=== PATIENT | male | born 1955 | race Hispanic/Latino ===

== ENCOUNTER 2017-10-20 07:16 | Day surgery (SDC) | payer MEDICARE ==
[2017-10-14 11:03] VITALS: BMI 36.6
--- NOTE | 2017-10-18 04:34 | HP ---
REASON FOR ADMISSION: Left heart cath, possible angioplasty, abnormal stress test, history of coronary artery disease, aortic stenosis. BRIEF CLINICAL HISTORY: This is a 62-year-old male with a past medical history significant for coronary artery disease, status post PTCA in 01/2016; [id number] aortic stenosis, who had an abnormal stress test. The patient is scheduled for elective cardiac cath with possible angioplasty. Denies any chest pain, shortness of breath, or any palpitation. PAST HISTORY: Significant for aortic stenosis, diabetes, hypertension, hyperlipidemia. SOCIAL HISTORY: Denies any smoking. Denies any history of alcohol abuse. CURRENT MEDICATIONS: The patient was taking Plavix 75 mg daily, glimepiride 2 mg daily, atorvastatin 40 mg daily, aspirin 81 mg daily, Ultram 50 mg daily, amlodipine 10 mg daily, Zoloft 50 mg daily, metoprolol 25 mg daily, lisinopril 40 mg daily, ibuprofen 2 tablets daily, glipizide 10 mg daily, metformin 1 g twice a day. RECENT CARDIAC WORKUP: As follows; patient had a stress test dated 10/01/2017 that shows normal valve motion with ejection fraction of 63%, abnormal stress myocardial perfusion study, partially reversible apical inferior defect suspicious for ischemia, normal gated wall motion abnormality in comparison with last study dated 12/02/2016, the defect appears larger into the apical area and partially reversible to the current study, new defect in the apical and inferior defect, ejection fraction reported 63%. The patient is also echocardiography done that revealed ejection fraction of 60% to 65%, severe AR, possibly zzno-nn-hglrrlrt mitral regurgitation, trace to mild tricuspid regurgitation. REVIEW OF SYSTEMS: As per HPI. PHYSICAL EXAMINATION: GENERAL: Height of the patient 6 feet, weight of the patient 270 pounds, body mass index 36.6 kg/m2. Rest of the examination as follows. VITAL SIGNS: Temperature afebrile, heart rate 70, blood pressure 140/80. HEENT: PERRLA, intact. NECK: Supple. No carotid bruit or thyromegaly. CHEST: Clear to auscultation. HEART: S1 and S2, regular. ABDOMEN: Soft. EXTREMITIES: Clubbing and cyanosis negative. LABORATORY DATA: Blood workup pending. IMPRESSION: Tanaybyk-jo-tpaaaz aortic stenosis, abnormal stress test, history of coronary artery disease, history of stent in left anterior descending artery in 2016, diabetes, hypertension, hyperlipidemia, lqby-vn-tpkfljyg mitral regurgitation and trace tricuspid regurgitation. RECOMMENDATION: We will do left and right heart catheterization. Further recommendations after cardiac catheterization. We will load the Plavix. We will follow up with you. Thank you Dr. Massimo Cosme for providing us the opportunity in taking care of the patient, Lukasz Thomas. Terry Catherine MD
[2017-10-20 08:12] LABS: BASO # 0.03 K/mm3 (0.0-2.0); BASO % 0.4 % (0.0-3.0); EOS # 0.3 (0.0-0.7); EOS % 4.4 % (1.5-5.0); GRAN # 4.97 (1.4-6.5); GRAN % 69.8 % (50.0-68.0); HEMOGLOBIN 11.3 g/dL (14.0-18.0); LYMPH # 1.3 (1.2-3.4); LYMPH % 18.6 % (22.0-35.0); MEAN CELL VOLUME 92.2 fl (80.0-105.0); MEAN CORPUSCULAR HEMOGLOBIN 30.4 pg (25.0-35.0); MEAN CORPUSCULAR HGB CONC 32.9 g/dl (31.0-37.0); MEAN PLATELET VOLUME 9.3 fl (7.0-11.0); MONO # 0.5 (0.1-0.6); MONO % 6.8 % (1.0-6.0); RBC 3.72 10^6/uL (3.5-6.1); RED CELL DISTRIBUTION WIDTH 13.5 % (11.5-14.5); WHITE BLOOD COUNT 7.1 10^3/ul (4.5-11.0)
[2017-10-20 08:21] LABS: INR 0.94 (0.93-1.08); PARTIAL THROMBOPLASTIN TIME 26.5 Seconds (25.1-36.5); PROTHROMBIN TIME 10.8 SECONDS (9.4-12.5)
[2017-10-20 08:24] LABS: CALCIUM 9.5 mg/dL (8.4-10.5)
[2017-10-20] MEDS ORDERED: Insulin Regular 1 UNITS/0.01 ML ML IVP ONE (08:30)
[2017-10-20] MEDS ORDERED: Sodium Bicarbonate (8.4%) 50 Meq Syringe IVP ONE (08:33)
[2017-10-20] MEDS ORDERED: Dextrose 50% SYRINGE Inj (50 ml) ONE (08:34)
[2017-10-20] MEDS ORDERED: Lidocaine 2% Inj (20ml) ONE (08:56)
[2017-10-20] MEDS ORDERED: Iodixanol 320 MG/ML 200 ML BOTTLE IV ONE (08:57)
[2017-10-20] MEDS ORDERED: Nitroglycerin 50mg in D5W 50 MG/250 ML BOTTLE IV ONE (08:58)
[2017-10-20] MEDS ORDERED: Verapamil 2 ML ONE (08:58)
[2017-10-20] MEDS ORDERED: Midazolam 2 MG/2 ML VIAL ONE (09:03)
--- NOTE | 2017-10-20 10:59 | CARD ---
APPROVED REPORT EKG Measurement Heart [id number] <Conclusion> Normal sinus rhythm Right bundle branch block Abnormal ECG
[2017-10-20 11:01] VITALS: TEMP 97.4
--- NOTE | 2017-10-20 11:19 | CPOSTOP ---
DATE: 10/20/2017 CARDIAC MILLER DISTILLERY PROCEDURE/CARDIAC CATHETERIZATION PHYSICIAN: Terry Catherine MD. ASSISTANT PROFESSOR OF HISTORY: Mika Hollis. TYPE OF ANESTHESIA USED: Moderate conscious sedation. Total dose used 2 mg of Versed, fentanyl 100 mcg. PRE-PROCEDURE DIAGNOSES: Aortic stenosis, abnormal stress test, unstable angina. PROCEDURE PERFORMED: Left heart catheterization, right heart catheterization. FINDINGS: Patent stent in LAD. Moderate aortic stenosis. FINAL DIAGNOSIS: Patent stent in left anterior descending. Distal left anterior descending diffusely diseased. Moderate aortic stenosis. POST PROCEDURE CONDITION: Post procedure, the patient's condition is stable. VASCULAR ACCESS SITE: Right femoral artery, right femoral vein. CLOSURE DEVICE APPLIED: Mynx, right femoral artery and right venous access site. TOTAL RADIATION DOSE: 64947 milligray unit. TOTAL FLUORO TIME: 13.2 minutes. Terry Catherine MD
[2017-10-20 14:49] VITALS: RESP 20; O2SAT 98
[2017-10-20 14:50] VITALS: BP 150/97; PULSE 65
--- NOTE | 2017-10-20 14:54 | CARD ---
APPROVED REPORT Procedure(s) performed: Complete Heart Catheterization HISTORY The patient is a 62 year-old male with a history of : most recent EF: 63%. (EF Method: RADIONUCLIDE), renal failure without dialysis, previous CVA , peripheral vascular disease, diabetes mellitus with oral treatment , previous diagnostic cath, tobacco history() : The patient is a current smoker , previous PCI (The PCI date was 06/30/2015), hypertension , dyslipidemia , cerebrovascular disease , Hx of aortic stenosis moderate to severe by echo and abnormal stress test , reversible apical ischemia. INDICATION The indication(s) include : positive stress test, dyspnea, valvular heart disease. CASE TECHNIQUE The patient was brought electively to the Cardiac Catheterization Laboratory in a fasting state and was prepped and draped in a sterile manner. The right femoral groin was infiltrated with 2% Lidocaine subcutaneous anesthesia. A 6FR GLIDESHEATH ACCESS KIT sheath was inserted into the right femoral artery without difficulty. Coronary angiography was performed using coronary diagnostic catheters. The left coronary system was accessed and visualized with a Diagnostic , 6F JL4 CATH DXT 100 CM catheter. The right coronary system was accessed and visualized with a Diagnostic ,6F JR 4 CATH DXT 100 CM catheter. The left ventricle was accessed and visualized with a 6F PIGTAIL 145 CATH DXT 110 CM catheter. Left ventricular/Aortic Valve gradient assessed on pullback. Left ventriculogram was performed in CADET projection. An aortogram of the ascending aorta was performed. A 7 sheath was inserted into the right femoral vein without difficulty. Coronary angiography was performed using coronary diagnostic catheters. Cardiac outputs were obtained by the Thermal Dilution method. Closure device was deployed with a 6 Fr / 7 Fr MynxGrip without any complications. The patient tolerated the procedure well and there were no complications associated with the procedure. Mynx applied in both [id number] artery and femoral vein ( access sites). Vessel Analysis The patient's coronary anatomy is left dominant. The left main coronary artery is a large size vessel without significant stenosis. The left main trifurcates to the left anterior descending, circumflex, and ramus. The left anterior descending artery is a medium size vessel with diffuse calcification noted throughout this vessel and without significant stenosis. Patent stent in proximal LAD, but Distal LAD is diffusely diseased, but no focal flow limitin stanosis noted. The first diagonal branch is a small size vessel with intimal irregularities and without significant stenosis. The second diagonal branch is a medium size vessel with intimal irregularities and without significant stenosis. The circumflex artery is a large size vessel without significant stenosis. The first obtuse marginal branch is a large size vessel with diffuse calcification noted throughout this vessel and without significant stenosis. The left posterior descending artery is a small size vessel with diffuse calcification noted throughout this vessel and without significant stenosis. The ramus intermedius artery is a large size vessel with diffuse calcification noted throughout this vessel and without significant stenosis. There is a 55% stenosis in the proximal segment. The right coronary artery is a small size vessel with intimal irregularities and without significant stenosis. Left Ventricle The left ventricle is normal in size with normal contractility. There was no cardiomyopathy. The left ventricular ejection fraction is estimated to be 55-60%. The left ventricular end diastolic pressure is 18 mmHg. 14-16 mm gradient on pull back across aortic valve noted. Right Heart Cath Findings The Right Atrial Pressure is 11 mmHg. The Right Ventricular Pressure is 38/15 mmHg. The Pulmonary Artery Pressure is 37/117 mmHg. mean of 23 The Pulmonary Catheter Wedge Pressure is 12 mmHg. PVR 2.6 Wood units. The cardiac output and index were assessed using thermo dilution. The Cardiac Output is 4.33 L/min. The Cardiac index is 1.79 L/min/m2. Conclusion Patent stent in proximal LAD. Moderate disease in ramus 55%, non flow limiting. Moderate GARRY 1.1 cm2 Peak gradient across aortic -26 mmof Hg. RHC;RA-11, RV-37/12, PA-37/17 with a mean of 23, PCW-12, CO-4.33, CI-1.79, PVR-2.6 ho unit Recommendations Aggressive Medical TherapyCardiac Risk Reduction Program Weight Loss Reduction Program Monitor renal Fx closely, Base line creatininme 1.6. Iv hydration with HCO3, repeat Blood W/u in one week to monitor renal Fx. Complete abstinence of Ibuprofen PM / Advil/ Naprosen. Hold lisinopril and sustitute to hydrallazine 25 mg po BID. Avoid nephrotoxic meds, F/U Nephrology. Monitor by echo in 1-2 years. CC; Drs. Guillaume / Naeem.
[2017-10-20 16:35] LABS: BASO # 0.03 K/mm3 (0.0-2.0); BASO % 0.5 % (0.0-3.0); EOS # 0.3 (0.0-0.7); EOS % 5.1 % (1.5-5.0); GRAN # 4.15 (1.4-6.5); GRAN % 65.7 % (50.0-68.0); HEMOGLOBIN 11.2 g/dL (14.0-18.0); LYMPH # 1.3 (1.2-3.4); LYMPH % 20.8 % (22.0-35.0); MEAN CELL VOLUME 91.4 fl (80.0-105.0); MEAN CORPUSCULAR HEMOGLOBIN 30.2 pg (25.0-35.0); MEAN PLATELET VOLUME 9.4 fl (7.0-11.0); MONO # 0.5 (0.1-0.6); MONO % 7.9 % (1.0-6.0); RBC 3.71 10^6/uL (3.5-6.1); RED CELL DISTRIBUTION WIDTH 13.3 % (11.5-14.5); WHITE BLOOD COUNT 6.3 10^3/ul (4.5-11.0)
[2017-10-20 17:20] LABS: CALCIUM 9.4 mg/dL (8.4-10.5)
[2017-10-21] MEDS ORDERED: Metoprolol Succinate 25 mg XL Tab PO SCH (10:00)
[2017-10-21] MEDS ORDERED: Acetaminophen 650mg/20.3ml solution UD PO SCH (10:00)
== END 2017-10-20 18:30 | disposition home or self-care (01) ==
LOC: CATH 07:16
PROVIDERS: ATTEND Internal Medicine Cardiovascular Disease
DX: I25.110 Atherosclerotic heart disease of native coronary artery with unstable angina pectoris (principal); R94.39 Abnormal result of other cardiovascular function study; I35.0 Nonrheumatic aortic (valve) stenosis; E11.51 Type 2 diabetes mellitus with diabetic peripheral angiopathy without gangrene; Z86.73 Personal history of transient ischemic attack (TIA), and cerebral infarction without residual deficits; E78.5 Hyperlipidemia, unspecified; I12.9 Hypertensive chronic kidney disease with stage 1 through stage 4 chronic kidney disease, or unspecified chronic kidney disease; E11.22 Type 2 diabetes mellitus with diabetic chronic kidney disease; N18.9 Chronic kidney disease, unspecified; Z95.5 Presence of coronary angioplasty implant and graft; F17.200 Nicotine dependence, unspecified, uncomplicated
CPT/HCPCS: 36415; 80048; 80061; 85025; 85610; 85730; 86850; 86900; 93005; 93460; 99152; 99153; C1760; C1769 ×3; C1894; J1644 ×2; J1940; J2250; J3010; J7030; Q9966

== ENCOUNTER 2018-03-15 10:06 | Emergency (ER) | payer MEDICARE ==
[2018-03-15 10:10] VITALS: BMI 37.3
--- NOTE | 2018-03-15 10:40 | ED PDOC ---
Arrival/HPI - General Chief Complaint: Altered Mental Status Time Seen by Provider: 03/15/18 10:09 Historian: Patient - History of Present Illness Narrative History of Present Illness (Text): 03/15/18 10:29 62 year old male, whose past medical history includes diabetes, who presents to the emergency department complaining of hypoglycemia. Patient states at around 23:30 last night he took his insulin and fell asleep in a recliner. Patient states at 03:00 this morning he went to the bathroom and went back to sleep. Patient's states she couldn't wake the patient up and called EMS. Patient' s blood sugar was recorded at 51 upon arrival top ED. Patient denies any fevers , chills, chest pain, shortness of breath, abdominal pain, nausea, vomiting, diarrhea, back pain, neck pain, urinary symptoms, headache, dizziness, or any other complaint. Time/Duration: 4-6 hours Symptom Onset: Gradual Symptom Course: Improving Activities at Onset: Light Context: Home Past Medical History - Provider Review Nursing Documentation Reviewed: Yes - Infectious Disease Hx of Infectious Diseases: None - Cardiac Hx Hypertension: Yes Other/Comment: 1 cardiac stent - Pulmonary Hx Respiratory Disorders: Yes (SMOKES PIPE) - Neurological HX Cerebrovascular Accident: Yes (slight R leg weakness) Other/Comment: cerebral hemorrhage from a fall last month - HEENT Hx HEENT Disorder: No - Renal Hx Renal Disorder: No Hx Renal Failure: Yes - Endocrine/Metabolic Hx Diabetes Mellitus Type 2: Yes - Hematological/Oncological Hx Blood Transfusions: No - Integumentary Hx Dermatological Disorder: Yes (SCARRING TO BILATERAL SHOULDER,LEFT ARM,FR SX) - Musculoskeletal/Rheumatological Hx Musculoskeletal Disorders: Yes Other/Comment: edema lo lower extemeties. multiple fracture ribs from a fall last month - Gastrointestinal Hx Gastrointestinal Disorders: No - Genitourinary/Gynecological Hx Genitourinary Disorders: No - Psychiatric Hx Emotional Abuse: No Hx Physical Abuse: No Hx Substance Use: No - Surgical History Hx Musculoskeletal Surgery: Yes (Bilat shoulders, Bilat ankles, carpal tunnel) - Anesthesia Hx Anesthesia Reactions: No Hx Malignant Hyperthermia: No - Suicidal Assessment Feels Threatened In Home Enviroment: No Family/Social History - Physician Review Nursing Documentation Reviewed: Yes Family/Social History: Unknown Family HX Smoking Status: Heavy Smoker > 10 Cigarettes Daily Hx Alcohol Use: No Hx Substance Use: No Allergies/Home Meds Allergies/Adverse Reactions: Allergies onion Allergy (Uncoded 03/15/18 10:11) ANAPHYLAXIS Home Medications: Home Meds Medication Instructions Recorded Confirmed Glimepiride [amaRYL] 2 mg PO DAILY 11/13/14 03/15/18 GlipiZIDE [Glucotrol] 10 mg PO BID 11/13/14 03/15/18 Metoprolol Succinate XL [Toprol XL] 25 mg PO DAILY 12/02/16 03/15/18 Sertraline [Zoloft] 50 mg PO DAILY 12/02/16 03/15/18 amLODIPine [Norvasc] 10 mg PO DAILY 10/02/17 03/15/18 Clopidogrel [Plavix] 75 mg PO DAILY 10/14/17 03/15/18 MetFORMIN [glucOPHAGE] 1,000 mg PO BID 10/14/17 03/15/18 hydrALAZINE [hydralazine 25 mg PO BID 10/20/17 03/15/18 Hydrochloride] Ferrous Sulfate [Ferosul] 325 mg PO BID 03/15/18 03/15/18 Gabapentin [Neurontin] 300 mg PO TID 03/15/18 03/15/18 oxyCODONE [oxyCODONE Immediate 5 mg PO BID 03/15/18 03/15/18 Release Tab] oxyCODONE [oxyCONTIN] 10 mg PO DAILY 03/15/18 03/15/18 Review of Systems - Physician Review All systems were reviewed & negative as marked: Yes - Review of Systems Constitutional: Normal Eyes: Normal ENT: Normal Respiratory: Normal. absent: SOB, Cough Cardiovascular: Normal. absent: Chest Pain Gastrointestinal: Normal. absent: Abdominal Pain, Diarrhea, Nausea, Vomiting Genitourinary Male: Normal. absent: Dysuria, Frequency Musculoskeletal: Normal. absent: Back Pain, Neck Pain Skin: Normal. absent: Rash Neurological: Normal. absent: Headache, Dizziness Endocrine: Normal Hemo/Lymphatic: Normal Psychiatric: Normal Physical Exam Vital Signs Temp Pulse Resp BP Pulse Ox 03/15/18 10:06 97.9 F 69 20 158/86 H 100 - Systems Exam Head: Present: Atraumatic, Normocephalic Pupils: Present: PERRL Extroacular Muscles: Present: EOMI Conjunctiva: Present: Normal Mouth: Present: Moist Mucous Membranes Neck: Present: Normal Range of Motion Respiratory/Chest: Present: Clear to Auscultation, Good Air Exchange. No: Respiratory Distress, Accessory Muscle Use Cardiovascular: Present: Regular Rate and Rhythm, Normal S1, S2. No: Murmurs Abdomen: No: Tenderness, Distention, Peritoneal Signs Back: Present: Normal Inspection Upper Extremity: Present: Normal Inspection. No: Cyanosis, Edema Lower Extremity: Present: Normal Inspection. No: Edema Neurological: Present: GCS=15, CN II-XII Intact, Speech Normal Skin: Present: Warm, Dry, Normal Color. No: Rashes Psychiatric: Present: Alert, Oriented x 3, Normal Insight, Normal Concentration Medical Decision Making ED Course and Treatment: 03/15/18 10:41 Impression: 62 year old male presents to the emergency department complaining of hypoglycemia. Plan: -- Heart healthy meal -- Reassess and disposition Progress Notes: - Scribe Statement The provider has reviewed the documentation as recorded by the Scribe Jossy Hemphill All medical record entries made by the Scribe were at my direction and personally dictated by me. I have reviewed the chart and agree that the record accurately reflects my personal performance of the history, physical exam, medical decision making, and the department course for this patient. I have also personally directed, reviewed, and agree with the discharge instructions and disposition. Disposition/Present on Arrival - Present on Arrival Any Indicators Present on Arrival: No History of DVT/PE: No History of Uncontrolled Diabetes: No Urinary Catheter: No History of Decub. Ulcer: No History Surgical Site Infection Following: None - Disposition Have Diagnosis and Disposition been Completed?: Yes Diagnosis: Hypoglycemia Disposition: HOME/ ROUTINE Disposition Time: 12:01 Patient Plan: Discharge Condition: GOOD Discharge Instructions (ExitCare): Low Blood Sugar in People With Diabetes, Low Blood Sugar, Adult (DC) Additional Instructions: Lukasz- It was a pleasure to care for you today. Please check your sugars frequently today. Eat well and follow up with your regular doctors tomorrow. Return to us if any problems. Andre- Dr. Evan Hunt Forms: [employer]ool (Liberian)
[2018-03-15 12:13] VITALS: BP 152/78; PULSE 72; RESP 18; TEMP 98.2; O2SAT 98
--- NOTE | 2018-03-15 22:02 | CARD ---
APPROVED REPORT Date of service: 03/15/2018 EKG Measurement Heart [id number] <Conclusion> Normal sinus rhythm Right bundle branch block Abnormal ECG
== END 2018-03-15 12:14 | disposition home or self-care (01) ==
LOC: ED 10:06
DX: E11.649 Type 2 diabetes mellitus with hypoglycemia without coma (principal); Z79.4 Long term (current) use of insulin; I10 Essential (primary) hypertension; Z86.73 Personal history of transient ischemic attack (TIA), and cerebral infarction without residual deficits; Z95.5 Presence of coronary angioplasty implant and graft; F17.210 Nicotine dependence, cigarettes, uncomplicated

== ENCOUNTER 2018-08-07 13:32 | Outpatient (CLI) | payer MEDICARE | END 2018-08-07 13:33 | disposition home or self-care (01) | LOC: CARDIO 13:32 ==

== ENCOUNTER 2018-09-16 16:16 | Inpatient (IN) | payer MEDICARE, OTHER ==
--- NOTE | 2018-09-16 16:35 | ED PDOC ---
Arrival/HPI - General Chief Complaint: Hip Pain Time Seen by Provider: 09/16/18 16:23 Historian: Patient - History of Present Illness Narrative History of Present Illness (Text): 09/16/18 16:35 63 y/o male with PMH of CAD, DM, CVA presents to the Emergency department c/o left hip pain s/p fall this afternoon. Pt is unsure how he fell, states he just "went down", but denies LOC or headstrike. Pt was unable to ambulate after the fall and had to be helped up by bystanders. Has not taken any medication for pain. Pt denies having an orthopedic doctor. Denies fevers, chills, chest pain, SOB, neck pain, back pain, nausea, vomiting, abdominal pain, numbness, weakness, paresthesias, dizziness, vision changes, or any other associated symptoms. Past Medical History - Infectious Disease Hx of Infectious Diseases: None - Cardiac Hx Hypertension: Yes Other/Comment: 1 cardiac stent - Pulmonary Hx Respiratory Disorders: Yes (SMOKES PIPE) - Neurological HX Cerebrovascular Accident: Yes (slight R leg weakness) Other/Comment: cerebral hemorrhage from a fall last month - HEENT Hx HEENT Disorder: No - Renal Hx Renal Disorder: No Hx Renal Failure: Yes - Endocrine/Metabolic Hx Diabetes Mellitus Type 2: Yes - Hematological/Oncological Hx Blood Transfusions: No - Integumentary Hx Dermatological Disorder: Yes (SCARRING TO BILATERAL SHOULDER,LEFT ARM,FR SX) - Musculoskeletal/Rheumatological Hx Musculoskeletal Disorders: Yes Other/Comment: edema lo lower extemeties. multiple fracture ribs from a fall last month - Gastrointestinal Hx Gastrointestinal Disorders: No - Genitourinary/Gynecological Hx Genitourinary Disorders: No - Psychiatric Hx Emotional Abuse: No Hx Physical Abuse: No Hx Substance Use: No - Surgical History Hx Musculoskeletal Surgery: Yes (Bilat shoulders, Bilat ankles, carpal tunnel) - Anesthesia Hx Anesthesia Reactions: No Hx Malignant Hyperthermia: No - Suicidal Assessment Feels Threatened In Home Enviroment: No Family/Social History - Physician Review Nursing Documentation Reviewed: Yes Family/Social History: No Known Family HX Smoking Status: Heavy Smoker > 10 Cigarettes Daily Hx Alcohol Use: No Hx Substance Use: No Allergies/Home Meds Allergies/Adverse Reactions: Allergies onion Allergy (Uncoded 03/15/18 10:11) ANAPHYLAXIS Home Medications: Home Meds Medication Instructions Recorded Confirmed Metoprolol Succinate XL [Toprol XL] 25 mg PO DAILY 12/02/16 09/17/18 Sertraline [Zoloft] 100 mg PO DAILY 12/02/16 09/17/18 amLODIPine [Norvasc] 10 mg PO DAILY 10/02/17 09/17/18 Clopidogrel [Plavix] 75 mg PO DAILY 10/14/17 09/17/18 MetFORMIN [glucOPHAGE] 1,000 mg PO BID 10/14/17 09/17/18 hydrALAZINE [hydralazine 25 mg PO BID 10/20/17 09/17/18 Hydrochloride] Gabapentin [Neurontin] 300 mg PO TID 03/15/18 09/17/18 Acetaminophen/Diphenhydramine 1 tab PO HS 09/17/18 09/17/18 [Tylenol Pm Ex-Strength Caplet] Aspirin [Adult Aspirin] 81 mg PO DAILY 09/17/18 09/17/18 Dulaglutide [Trulicity] 0.5 ml SC QWK 09/17/18 09/17/18 traMADol [Ultram] 50 mg PO Q8 PRN 09/17/18 09/17/18 Review of Systems - Review of Systems Constitutional: Normal. absent: Fevers Eyes: Normal. absent: Vision Changes, Photophobia, Eye Pain ENT: Normal. absent: Sore Throat, Sinus Congestion Respiratory: Normal. absent: SOB, Cough Cardiovascular: Normal. absent: Chest Pain, Palpitations Gastrointestinal: Normal. absent: Abdominal Pain, Nausea, Vomiting Genitourinary Male: Normal Musculoskeletal: Arthralgias. absent: Back Pain, Neck Pain Skin: Normal. absent: Rash, Pruritis, Laceration Neurological: Normal. absent: Headache, Dizziness Endocrine: Normal Hemo/Lymphatic: Normal Psychiatric: Normal Physical Exam Vital Signs Reviewed: Yes Temperature: Afebrile Blood Pressure: Hypertensive Pulse: Regular Respiratory Rate: Normal Appearance: Positive for: Well-Appearing, Non-Toxic, Comfortable Pain Distress: None Mental Status: Positive for: Alert and Oriented X 3 - Systems Exam Head: Present: Atraumatic, Normocephalic. No: Tenderness, Ecchymosis, Abrasion, Laceration Pupils: Present: PERRL Extroacular Muscles: Present: EOMI Conjunctiva: Present: Normal Mouth: Present: Moist Mucous Membranes Neck: Present: Normal Range of Motion Respiratory/Chest: Present: Clear to Auscultation, Good Air Exchange. No: Respiratory Distress, Accessory Muscle Use Cardiovascular: Present: Regular Rate and Rhythm, Normal S1, S2, Peripheal Pulses Present Abdomen: No: Tenderness, Distention, Peritoneal Signs Back: Present: Normal Inspection Upper Extremity: Present: Normal Inspection, Normal ROM, NORMAL PULSES, Neurovascularly Intact, Capillary Refill < 2s. No: Cyanosis, Edema, Temperature Abnormalties Lower Extremity: Present: NORMAL PULSES, Tenderness (lateral left hip), Neurovascularly Intact, Capillary Refill < 2 s. No: Normal Inspection (left leg externally rotated and mildly shortened ), Edema, Normal ROM (decreased at left hip secondary to pain), Swelling, Temperature Abnormalties, Other (no bruising) Neurological: Present: GCS=15, CN II-XII Intact, Speech Normal Skin: Present: Warm, Dry, Normal Color. No: Rashes Psychiatric: Present: Alert, Oriented x 3, Normal Insight, Normal Concentration, Normal Affect, Normal Mood Medical Decision Making ED Course and Treatment: Initial Plan: * CBC, CMP * Coags * UA, culture * EKG * CT head * CT Cervical Spine * XR Left Hip * XR Left Femur * Portable Chest XR * Morphine Potassium 6.0 without EKG changes Bicarb, insulin, and IVF ordered XR of left hip reviewed with ED attending Dr. Crawley, who recommends CT scan. CT head and neck negative for acute pathology EKG shows no acute changes, troponin 0.01 CT hip shows comminuted subcapital femoral neck fracture. 2099 Spoke with patient's primary Dr. Cosme, who asks for Dr. Bhardwaj on orthopedic consult. Accepted pt to his service for inpatient admission to telemetry with diagnoses of syncope, femoral neck fracture, and hyperkalemia. Pt made aware of change in disposition. Resting comfortably in stretcher with stable vital signs at this time. [address] Bhardwaj who reviewed diagnostic imaging and recommends cardiology consult and preop labs for possible surgery tomorrow. Suggests pillow under left knee, no further intervention at this time. - Lab Interpretations Lab Results: 09/16/18 16:40 09/16/18 16:40 Lab Results 09/16/18 21:09: POC Glucose (mg/dL) 182 H 09/16/18 20:15: PT 10.9, INR 0.98, APTT 26.7 L 09/16/18 20:15: Urine Color Light yellow, Urine Appearance Clear, Urine pH 6.0, Ur Specific [place] >= 1.030, Urine Protein 30 H, Urine Glucose (UA) 100 H, Urine Ketones Negative, Urine Blood Negative, Urine Nitrate Negative, Urine Bilirubin Negative, Urine Urobilinogen 0.2, Ur Leukocyte Esterase Negative, Urine RBC 0 - 2, Urine WBC 0 - 2, Ur Epithelial Cells None 09/16/18 16:40: Sodium 140, Potassium 6.0 H*, Chloride 108 H, Carbon Dioxide 20 L, Anion Gap 18, BUN 35 H, Creatinine 1.7 H, Est GFR ( Amer) 49, Est GFR (Non-Af Amer) 41, Random Glucose 224 H, Calcium 10.0, Magnesium 1.4 L, Total Bilirubin 0.4, AST 26, ALT 19, Alkaline Phosphatase 101, Troponin I 0.01, Total Protein 8.6 H, Albumin 4.8, Globulin 3.8, Albumin/Globulin Ratio 1.3 09/16/18 16:40: WBC 13.5 H, RBC 4.14, Hgb 12.5 L, Hct 37.6 L, MCV 90.8, MCH 30. 2, MCHC 33.2, RDW 14.5, Plt Count 208, MPV 8.8, Neut % (Auto) 87.1 H, Lymph % (Auto) 6.3 L, [place] % (Auto) 5.8, Eos % (Auto) 0.6 L, Baso % (Auto) 0.2, Lymph # (Auto) 0.9 L, [place] # (Auto) 0.8 H, Eos # (Auto) 0.1, Baso # (Auto) 0.03, Absolute Neuts (auto) 11.77 H I have reviewed the lab results: Yes - RAD Interpretation Narrative RAD Interpretations (Text): 09/16/18 18:[address]: FINDINGS: VERTEBRAE: No acute compression fractures no retropulsed fragments. Vertebral bodies exhibit normal stature. There straightening of the normal cervical lordosis which may in part be due to patient positioning gantry however underlying element of muscle spasm may contribute DISCS/SPINAL CANAL/NEURAL FORAMINA: Mild multilevel degenerative spondylosis. At the C2-C3 level, there is adequate disc height. Minor central and bilateral disc bulge indents the ventral surface of the thecal sac and appears to minimally indent the ventral surface of the cord. The overall central canal measured at midline appears adequate despite disc. The uncovertebral joints exhibit minimal degenerative squaring. Facets a prominent. Exit foramina adequate. At the C3-C4 level, there is adequate disc height. Mild to moderate broad-based bulge of the posterior annulus flattens the ventral surface of the thecal sac and cord. Central canal is mild to moderately stenotic. The uncovertebral joints exhibit mild degenerative squaring. The facets are slightly overgrown. Exit f oramina appear adequate. At the C4-C5 level, there is more marked disc space narrowing with endplate eburnation. Small broad-based disc ridge complex contiguous hypertrophic uncovertebral joints. The changes result in moderate central canal stenosis and cord compression. Facet joints are hypertrophic right greater than left with bilateral foraminal stenosis. At the C5-C6 level, similar changes are seen. There is marked disc space narrowing with mild endplate eburnation. Small broad-based disc ridge complex contiguous with hypertrophic uncovertebral joints. Facets also hypertrophic right greater than left. Changes result in [id number] canal stenosis and cord compression. Exit foramina are stenotic bilaterally left greater than right. At the C6-C7 level, marked disc space narrowing with endplate eburnation. Irregular hypertrophic uncovertebral joints left larger than right result in compressive effects on the ventral surface of the thecal sac and cord more so on the left side. Central canal on the left side is [id number] stenotic. Bony exit foramina are also narrowed on the left side and adequate on the right. PARASPINAL SOFT TISSUES: Unremarkable. OTHER FINDINGS: None. IMPRESSION: No acute fractures. Multilevel degenerative spondylosis most significantly affecting the C3-C4 through the C6-C7 levels with varying degrees of mild to moderate canal stenosis and cord compression as well as variable bilateral foraminal stenosis. Head CT: FINDINGS: Streak artifact limits evaluation of the skull base. HEMORRHAGE: No intracranial hemorrhage. BRAIN: Diffuse atrophy with prominence of the ventricles and sulci noted. No mass effect or edema. Intracranial atherosclerosis. The glover-white matter differentiation appears intact. Please note that MRI with diffusion imaging is more sensitive in the detection of acute ischemic event. VENTRICLES: No hydrocephalus. CALVARIUM: Unremarkable. PARANASAL SINUSES: Unremarkable as visualized. No significant inflammatory changes. MASTOID AIR CELLS: Unremarkable as visualized. No inflammatory changes. OTHER FINDINGS: None. IMPRESSION: No acute intracranial pathology identified. Findings as above. CT left Hip, without IV contrast: BONES: A comminuted subcapital fracture of the left femoral neck is identified. There is coxa plana deformity at the fracture site. Additionally, there are noted to be partially healed comminuted fractures within the left superior and inferior pubic rami. No aggressive appearing osseous lesion. JOINTS: No dislocation. The joint spaces are normal. SOFT TISSUES: There is evidence of previous bilateral scrotal surgery thought probably compatible with vasectomy. Extensive atherosclerotic vascular plaquing is present. IMPRESSION: 1. Acute comminuted subcapital fracture of the left femoral neck. 2. Partially healed comminuted fractures of the left superior and inferior pubic rami. 3. Extensive atherosclerotic vascular plaquing. 4. Evidence of previous bilateral scrotal surgery; likely compatible with vasectomy. Electronically signed on Sep 16, 2018 9:01:09 PM EDT by: Дмитрий Ramirez M.D., MICKI Certified By [employer] Fellowship Trained MRI and CT Specialist Electroplating Laborer: Radiologist - EKG Interpretation EKG Interpretation (Text): Rate 93; NSR; RBBB; Normal Intervals; No STEMI, nonspecific ST/T wave changes Interpreted by ED Physician: Yes Type: 12 lead EKG Disposition/Present on Arrival - Present on Arrival Any Indicators Present on Arrival: No History of DVT/PE: No History of Uncontrolled Diabetes: No Urinary Catheter: No History of Decub. Ulcer: No History Surgical Site Infection Following: None - Disposition Have Diagnosis and Disposition been Completed?: Yes Diagnosis: Femoral neck fracture, Hyperkalemia, Syncope Disposition: HOSPITALIZED Disposition Time: 21:15 Patient Problems: Current Active Problems Problem Status Onset Hyperkalemia Acute Femoral neck fracture Acute Syncope Acute Condition: STABLE
[2018-09-16 16:54] LABS: BASO # 0.03 K/mm3 (0.0-2.0); BASO % 0.2 % (0.0-3.0); EOS # 0.1 (0.0-0.7); EOS % 0.6 % (1.5-5.0); HEMOGLOBIN 12.5 g/dL (14.0-18.0); LYMPH # 0.9 (1.2-3.4); LYMPH % 6.3 % (22.0-35.0); MEAN CELL VOLUME 90.8 fl (80.0-105.0); MEAN CORPUSCULAR HEMOGLOBIN 30.2 pg (25.0-35.0); MEAN CORPUSCULAR HGB CONC 33.2 g/dl (31.0-37.0); MEAN PLATELET VOLUME 8.8 fl (7.0-11.0); MONO # 0.8 (0.1-0.6); MONO % 5.8 % (1.0-6.0); RBC 4.14 10^6/uL (3.5-6.1); RED CELL DISTRIBUTION WIDTH 14.5 % (11.5-14.5); WHITE BLOOD COUNT 13.5 10^3/uL (4.5-11.0)
[2018-09-16] MEDS ORDERED: Morphine 2 mg/ml ISec IVP STA ×3 (16:58→21:11)
[2018-09-16 17:15] LABS: ALB/GLOB RATIO 1.3 (1.1-1.8); ALBUMIN 4.8 g/dL (3.0-4.8)
[2018-09-16 17:16] LABS: TROPONIN I 0.01 ng/mL
--- NOTE | 2018-09-16 17:39 | CT ---
Date of service: 09/16/2018 PROCEDURE: CT HEAD WITHOUT CONTRAST. HISTORY: syncope COMPARISON: Noncontrast head CT performed 12/14/15 TECHNIQUE: Axial computed tomography images were obtained through the head/brain without intravenous contrast. Radiation dose: Total exam DLP = 836.9 mGy-cm. This CT exam was performed using one or more of the following dose reduction techniques: Automated exposure control, adjustment of the mA and/or kV according to patient size, and/or use of iterative reconstruction technique. FINDINGS: Streak artifact limits evaluation of the skull base. HEMORRHAGE: No intracranial hemorrhage. BRAIN: Diffuse atrophy with prominence of the ventricles and sulci noted. No mass effect or edema. Intracranial atherosclerosis. The glover-white matter differentiation appears intact. Please note that MRI with diffusion imaging is more sensitive in the detection of acute ischemic event. VENTRICLES: No hydrocephalus. CALVARIUM: Unremarkable. PARANASAL SINUSES: Unremarkable as visualized. No significant inflammatory changes. MASTOID AIR CELLS: Unremarkable as visualized. No inflammatory changes. OTHER FINDINGS: None. IMPRESSION: No acute intracranial pathology identified. Findings as above.
--- NOTE | 2018-09-16 17:51 | CT ---
Date of service: 09/16/2018 PROCEDURE: CT Cervical Spine without contrast HISTORY: Status post fall with neck pain COMPARISON: None available. TECHNIQUE: Axial computed tomography images were obtained of the cervical spine without the use of intravenous contrast. Coronal and sagittal reformatted images were created and reviewed. Radiation dose: Total exam DLP = 652.58 mGy-cm. This CT exam was performed using one or more of the following dose reduction techniques: Automated exposure control, adjustment of the mA and/or kV according to patient size, and/or use of iterative reconstruction technique. FINDINGS: VERTEBRAE: No acute compression fractures no retropulsed fragments. Vertebral bodies exhibit normal stature. There straightening of the normal cervical lordosis which may in part be due to patient positioning gantry however underlying element of muscle spasm may contribute DISCS/SPINAL CANAL/NEURAL FORAMINA: Mild multilevel degenerative spondylosis. At the C2-C3 level, there is adequate disc height. Minor central and bilateral disc bulge indents the ventral surface of the thecal sac and appears to minimally indent the ventral surface of the cord. The overall central canal measured at midline appears adequate despite disc. The uncovertebral joints exhibit minimal degenerative squaring. Facets a prominent. Exit foramina adequate. At the C3-C4 level, there is adequate disc height. Mild to moderate broad-based bulge of the posterior annulus flattens the ventral surface of the thecal sac and cord. Central canal is mild to moderately stenotic. The uncovertebral joints exhibit mild degenerative squaring. The facets are slightly overgrown. Exit foramina appear adequate. At the C4-C5 level, there is more marked disc space narrowing with endplate eburnation. Small broad-based disc ridge complex contiguous hypertrophic uncovertebral joints. The changes result in moderate central canal stenosis and cord compression. Facet joints are hypertrophic right greater than left with bilateral foraminal stenosis. At the C5-C6 level, similar changes are seen. There is marked disc space narrowing with mild endplate eburnation. Small broad-based disc ridge complex contiguous with hypertrophic uncovertebral joints. Facets also hypertrophic right greater than left. Changes result in [id number] canal stenosis and cord compression. Exit foramina are stenotic bilaterally left greater than right. At the C6-C7 level, marked disc space narrowing with endplate eburnation. Irregular hypertrophic uncovertebral joints left larger than right result in compressive effects on the ventral surface of the thecal sac and cord more so on the left side. Central canal on the left side is [id number] stenotic. Bony exit foramina are also narrowed on the left side and adequate on the right. PARASPINAL SOFT TISSUES: Unremarkable. OTHER FINDINGS: None. IMPRESSION: No acute fractures. Multilevel degenerative spondylosis most significantly affecting the C3-C4 through the C6-C7 levels with varying degrees of mild to moderate canal stenosis and cord compression as well as variable bilateral foraminal stenosis.
[2018-09-16] MEDS ORDERED: Sodium Chloride 0.9% 500 ML IV STA ×2 (17:54→18:32)
[2018-09-16] MEDS ORDERED: Sodium Bicarbonate (8.4%) 50 Meq Syringe IVP ONE (18:04)
[2018-09-16] MEDS ORDERED: Dextrose 50% SYRINGE Inj (50 ml) IVP STA (18:06)
[2018-09-16] MEDS ORDERED: Insulin Regular 1 UNITS/0.01 ML ML SC STA (18:06)
[2018-09-16] MEDS ORDERED: Sodium Bicarbonate (8.4%) 50 Meq Syringe IVP STA (18:29)
[2018-09-16 20:36] LABS: URINE BILIRUBIN NEGATIVE (NEGATIVE); URINE BLOOD NEGATIVE (NEGATIVE); URINE GLUCOSE (UA) 100 mg/dL (NEGATIVE); URINE LEUKOCYTE ESTERASE NEGATIVE Leu/uL (NEGATIVE); URINE PROTEIN 30 mg/dL (<30 mg/dL); URINE UROBILINOGEN 0.2 E.U./dL (<1 E.U./dL)
[2018-09-16 20:37] LABS: URINE APPEARANCE CLEAR (CLEAR); URINE COLOR LIGHT YELLOW (YELLOW)
[2018-09-16 20:39] LABS: URINE RBC 0 - 2 /hpf (0-2); URINE WBC 0 - 2 /hpf (0-6)
[2018-09-16 20:44] LABS: INR 0.98; PARTIAL THROMBOPLASTIN TIME 26.7 Seconds (26.9-38.3); PROTHROMBIN TIME 10.9 SECONDS (9.4-12.5)
[2018-09-16] MEDS: Sodium Chloride 0.9% 1,000 ML IV SCH (21:36)
--- NOTE | 2018-09-16 21:54 | CARD ---
APPROVED REPORT Date of service: 09/16/2018 EKG Measurement Heart [id number] <Conclusion> Poor data quality, interpretation may be adversely affected Undetermined rhythm Right bundle branch block Possible Inferior infarct, age undetermined Abnormal ECG
[2018-09-16] MEDS: Insulin Reg-MEDIUM-Coverage SC SCH (22:00)
[2018-09-17] MEDS: HYDROmorphone 1 mg/ml ISec IVP PRN ×3 (01:44→19:06)
[2018-09-17 04:50] LABS: BASO # 0.02 K/mm3 (0.0-2.0); BASO % 0.2 % (0.0-3.0); EOS # 0.2 (0.0-0.7); EOS % 2.6 % (1.5-5.0); HEMOGLOBIN 11.7 g/dL (14.0-18.0); LYMPH # 1.4 (1.2-3.4); LYMPH % 17.4 % (22.0-35.0); MEAN CELL VOLUME 89.3 fl (80.0-105.0); MEAN CORPUSCULAR HEMOGLOBIN 29.8 pg (25.0-35.0); MEAN CORPUSCULAR HGB CONC 33.4 g/dl (31.0-37.0); MEAN PLATELET VOLUME 8.4 fl (7.0-11.0); MONO % 11.6 % (1.0-6.0); RBC 3.92 10^6/uL (3.5-6.1); RED CELL DISTRIBUTION WIDTH 14.7 % (11.5-14.5); WHITE BLOOD COUNT 8.2 10^3/uL (4.5-11.0)
[2018-09-17 05:08] LABS: INR 1.05; PROTHROMBIN TIME 11.9 SECONDS (9.4-12.5)
[2018-09-17 06:52] LABS: ALB/GLOB RATIO 1.1 (1.1-1.8); ALBUMIN 4.1 g/dL (3.0-4.8); ALT/SGPT 11 U/L (7-56); AST/SGOT 22 U/L (17-59); BLOOD UREA NITROGEN 27 mg/dL (7-21); CALCIUM 9.6 mg/dL (8.4-10.5); GFR NON-AFRICAN AMERICAN 51
[2018-09-17] MEDS: Insulin Reg-MEDIUM-Coverage SC SCH ×4 (08:35→22:46)
--- NOTE | 2018-09-17 08:40 | CT ---
Date of service: 09/16/2018 PROCEDURE: CT of the right hip. HISTORY: hip pain, abnormal XR COMPARISON: None available. TECHNIQUE: Contiguous axial images of the left hip were obtained. Coronal and sagittal reformats were generated. Radiation dose: Total exam DLP = 711.88 mGy-cm. This CT exam was performed using one or more of the following dose reduction techniques: Automated exposure control, adjustment of the mA and/or kV according to patient size, and/or use of iterative reconstruction technique. FINDINGS: BONES: Acute comminuted subcapital fracture of the left femoral neck. Partially healed comminuted fracture of the left superior and inferior pubic rami. Femoral head maintains normal contour. LEFT HIP JOINT: Unremarkable. No dislocation. No degenerative changes. SOFT TISSUES: Unremarkable. IMPRESSION: Acute comminuted subcapital fracture of the left femoral neck. Partially healed comminuted fracture of the left superior and inferior pubic rami.
[2018-09-17] MEDS: Sodium Chloride 0.9% 1,000 ML IV SCH (08:45)
--- NOTE | 2018-09-17 09:35 | RAD ---
Date of service: 09/16/2018 HISTORY: syncope COMPARISON: 12/14/2015 FINDINGS: LUNGS: No active pulmonary disease. PLEURA: No significant pleural effusion identified, no pneumothorax apparent. CARDIOVASCULAR: No aortic atherosclerotic calcification present. Normal cardiac size. No pulmonary vascular congestion. OSSEOUS STRUCTURES: No significant abnormalities. VISUALIZED UPPER ABDOMEN: Normal. OTHER FINDINGS: None. IMPRESSION: No active disease.
--- NOTE | 2018-09-17 10:26 | RAD ---
Date of service: 09/16/2018 PROCEDURE: Pelvis and left hip HISTORY: fall, left hip pain COMPARISON: TECHNIQUE: Three views FINDINGS: There is a displaced subcapital hip fracture on the left. Old fractures are seen of the pubic rami bilaterally. The right hip is unremarkable IMPRESSION: Subcapital hip fracture on the left
--- NOTE | 2018-09-17 10:27 | RAD ---
Date of service: 09/16/2018 PROCEDURE: Left Femur Radiographs. HISTORY: fall, left hip pain COMPARISON: None. TECHNIQUE: AP and Lateral Radiographs of the left femur. FINDINGS: FEMUR: Normal. No fracture. SOFT TISSUES: Normal. OTHER FINDINGS: Subcapital hip fracture on the left IMPRESSION: Unremarkable radiographs of the left femur.
[2018-09-17] MEDS: Metoprolol Succinate 25 mg XL Tab PO SCH (11:01)
[2018-09-17 12:38] VITALS: BMI 34.7
--- NOTE | 2018-09-17 14:03 | CON ---
DATE: 09/17/2018 ORTHOPEDIC CONSULT HISTORY OF PRESENT ILLNESS: The patient slipped and fell walking to a store on yesterday which is 09/16/2018, brought to the ER. X-rays of his painful left hip showed a displaced subcapital fracture left hip. He does have pain with attempted motion, cannot do straight leg raising. He is 63 years old, so he is a candidate for total hip, but because of his medical comorbidities, bipolar hip prosthesis will handle this also and do not be as stressful of a surgery, so hopefully I could do a left hip bipolar prosthesis when he is cleared medically by Dr. Cosme and Dr. Hartley and hopefully I can do it today on 09/17/2018 and if not, we can do it tomorrow in the afternoon. FINAL DIAGNOSIS: Displaced subcapital fracture left hip. PLAN: Plan is to stabilize the hip with left hip bipolar prosthesis and he will be able to do almost everything physically again. Jaime Bhardwaj DO BILL
--- NOTE | 2018-09-17 18:38 | HP ---
HISTORY OF PRESENT ILLNESS: The patient is a 63-year-old man with a past medical history of hypertension, CAD s/p PCI with stent placement and non-insulin dependent diabetes mellitus who presented s/p fall with resultant left hip fracture. He states that he was walking into a store when he suddenly fell and sustained trauma to his left hip. He is unsure how he fell but denied chest pain, palpitations of loss of consciousness. He developed immediate onset of pain with inability to bear weight. EMS was called and he was taken to [facility] ED for evaluation. Workup in the ED demonstrated an acute comminuted subcapital fracture of the left femoral neck. He was started on analgesic medications and subsequently admitted for orthopedic evaluation. PAST MEDICAL HISTORY: As per HPI, also hyperlipidemia, PVD, history of CVA, osteoarthritis of bilateral hips and anxiety. PAST SURGICAL HISTORY: Bilateral cataracts removal, carotid endarterectomy and lap band. ALLERGIES: NKDA. MEDICATIONS: Plavix 75 mg p.o. daily, Aspirin 81 mg p.o. daily, Toprol XL 25 mg p.o. daily, Lipitor 40 mg p.o. daily, Norvasc 10 mg p.o. daily, Hydralazine 25 mg p.o. b.i.d., Metformin 1000 mg p.o. b.i.d., Glipizide 10 mg p.o. b.i.d., Glimepiride 2 mg p.o. daily, Zoloft 200 mg p.o. daily, Tramadol 50 mg p.o. q. 4 hours p.r.n. pain and Gabapentin 300 mg p.o. t.i.d. FAMILY HISTORY: Noncontributory. SOCIAL HISTORY: The patient reports an active [id number] smoking history and social alcohol use. He denies illicit drug abuse. REVIEW OF SYSTEMS: A 12-point review of systems is negative except as per HPI. PHYSICAL EXAMINATION: VITAL SIGNS: Temperature 97.7, pulse 96, blood pressure 148/94, respiratory rate 18, oxygen saturation 97% on room air. GENERAL: Moderate distress secondary to left hip pain. HEENT: PERRL, EOMI. No scleral icterus. No conjunctival pallor. NECK: No JVD. No bruits. LUNGS: Clear to auscultation. CARDIOVASCULAR: Regular rate and rhythm. Normal S1 and S2. Grade III/ JO to LLSB. ABDOMEN: Normoactive bowel sounds, soft, nontender, nondistended. EXTREMITIES: No edema. Decreased range of motion to left lower extremity (limited by pain). NEUROLOGIC: Awake, alert and oriented x 3. No focal motor deficits. LABORATORY DATA: WBC 8, hemoglobin 11.7, hematocrit 35, platelets 166. Sodium 142, potassium 5.2, chloride 110, bicarb 23, BUN 27, creatinine 1.4, glucose 135. INR 1.05. IMAGING STUDIES: 1. CT of the head without contrast demonstrated no acute intracranial pathology. 2. CT of the cervical spine without contrast demonstrated multilevel degenerative changes but otherwise no acute pathology. 3. CT of the left hip without contrast demonstrated acute comminuted subcapital fracture of the left femoral neck and a partially healed comminuted fracture of the left superior and inferior pubic rami. ASSESSMENT: The patient is a 63-year-old man with multiple medical comorbidities who presented s/p fall with resultant left hip trauma and was admitted for orthopedic evaluation of an acute comminuted subcapital fracture of the left femoral neck. PLAN: 1. Acute left hip fracture. Input from Dr. Bhardwaj noted and we are awaiting cardiac preoperative risk assessment. Given his underlying comorbidities he will be an intermediate risk candidate for an intermediate risk procedure. Continue current analgesic regimen. 2. Hypertension. Blood pressure controlled. Continue Amlodipine 10 mg p.o. daily, Hydralazine 25 mg p.o. b.i.d. and Toprol XL 25 mg p.o. daily. 3. CAD s/p PCI with stent placement. Continue Lipitor 40 mg p.o. daily and Toprol XL 25 mg p.o. daily. Aspirin 81 mg p.o. daily and Plavix 75 mg p.o. daily are on hold in anticipation of OR. 4. Non-insulin dependent diabetes mellitus. Continue Metformin 1000 mg p.o. b.i.d., Glipizide 10 mg p.o. b.i.d. and medium-dose ISS. 5. Hyperlipidemia. Continue Lipitor 40 mg p.o. daily. 6. PVD. Continue Lipitor 40 mg p.o. daily. As above, Aspirin on hold in anticipation of OR. 7. Anxiety disorder. Continue Zoloft 200 mg p.o. daily. 8. Osteoarthritis of bilateral hips. Continue with current analgesic regimen. 9. Prophylaxis. Continue with Protonix for GI prophylaxis and Heparin for DVT prophylaxis. CODE STATUS: Full code. Massimo Cosme MD BILL
--- NOTE | 2018-09-17 19:13 | CON ---
DATE: 09/16/2018 CONSULT SERVICE: Cardiology. REASON FOR CONSULTATION: Preoperative evaluation risk stratification, status post fracture of femoral neck left, preoperative evaluation risk stratification for OR, history of coronary artery disease. BRIEF CLINICAL HISTORY: This is a 63-year-old male with past medical history significant for coronary artery disease, history of hypertension, history of coronary artery disease, status post PTCA 01/2016, ftnabgil-gb-ubxizi aortic stenosis, who had cardiac catheterization on 10/20/2017, moderate disease in the ramus intermedius, medical treatment recommended, moderate aortic stenosis, who was in usual state of health, went to [employer] to get stuff where he fell down in the parking lot, sustained a left hip fracture. The patient drove home, but he could not get out of his truck and so called his , who called the ambulance and brought here, found to be fractured hip. The patient now requires OR internal fixation. Denies any chest pain, denies any shortness of breath, denies any palpitation. PAST MEDICAL HISTORY: Significant for renal insufficiency, diabetes, hypertension, hyperlipidemia, history of coronary artery disease, status post PTCA in 01/2016, history of moderate aortic stenosis. PREVIOUS CARDIAC WORKUP: As follows; the patient had a stress test date 10/01/2017 that shows normal valve motion, ejection fraction 60%, abnormal myocardial perfusion study, ischemia. When comparison was made from this stress test to 12/02/2016, defect appears larger. Following this, the patient had a cardiac catheterization as discussed below. The patient had echocardiography done that revealed ejection fraction 65%, severe and possibly usk-hc-eyibktdd mitral regurgitation, wlidf-rj-msbj tricuspid regurgitation. Following that stress test, the patient had a cardiac catheterization dated 10/20/2017, that revealed patent stent in proximal LAD was placed in 01/2016, aecmxuyg-au-ntlfaj disease in ramus of 55% stenosis, non-flow limiting, moderate aortic stenosis, valve area 1.1 cm2, peak gradient across the aortic valve 14 to 15 mm consistent with bhy-xz-oqrizzin aortic stenosis. Right heart catheterization was done at that time and revealed RA 11, RV 37/12, PA 37/17, main PA 23, pulmonary capillary wedge pressure 12, cardiac output 4.33, cardiac index 1.79, pulmonary vascular resistance 2.6 Wood units. The patient has a baseline creatinine around 1.6 to 1.8. SOCIAL HISTORY: Denies any smoking. Denies any history of alcohol abuse. CURRENT MEDICATIONS: The patient is taking at home; Tramadol 50 mg every 8 hours, hydralazine 25 mg p.o. b.i.d., amlodipine 10 mg daily, Zoloft 100 mg daily, metoprolol succinate 25 mg p.o. daily, metformin 1 gram twice a day, gabapentin, Neurontin 300 mg p.o. t.i.d., Trulicity 0.5 mg subcutaneously every week, Plavix 75 mg daily, atorvastatin 40 mg daily, aspirin 81 mg daily, acetaminophen diphenhydramine Tylenol PM p. o. at bedtime. ALLERGIES: ALLERGY TO ONION. REVIEW OF SYSTEMS: As per HPI. PHYSICAL EXAMINATION GENERAL: Height of the patient 5 feet 10 inches, weight of the patient 242 pounds, body mass index 34.7 kg/m2 VITAL SIGNS: Temperature afebrile, heart rate 96, blood pressure 145/88. HEENT: PERRLA. Extraocular muscles intact. NECK: Supple. No carotid bruit or thyromegaly. CHEST: Clear to auscultation. HEART: S1 and S2, regular. ABDOMEN: Soft. EXTREMITIES: Clubbing and cyanosis negative. LABORATORY DATA: WBC 8.2, hemoglobin 11.3, hematocrit 35.0, platelet count 166. Chemistry shows sodium 142, potassium 5.0, chloride 110, cardio dioxide 23, anion gap of 14, BUN 27, creatinine 1.4. IMPRESSION AND PLAN: A 63-year-old male with past medical history significant for coronary artery disease, status post stent on 01/2016, history of chronic renal insufficiency, who fell down and sustained fractured hip requiring open reduction and internal fixation. The patient has a history of diabetes, hypertension, hyperlipidemia, moderate aortic stenosis. The patient had recent cardiac catheterization a year go that shows patent stent in left anterior descending that was placed in 2016, history of moderate disease in ramus intermedius with preserved left ventricular function, right heart catheterization will upper limit normal. In view of the above, patient is at ufabrskr-sx-exty risk for surgery, but cleared from Cardiology point of view with vowvkbhs-fn-smdi risk. No absolute contraindication. No evidence of arrhythmia. No evidence of ischemia. No evidence of congestive heart failure. The patient was on Plavix, may need some platelet if the patient is bleeding. We will monitor closely, continue perioperative beta-estelle. Electrocardiogram shows it was read as a normal sinus, right bundle-branch block, date was read as undetermined. So we will clear the patient to go for surgery as mentioned above with gjkpprmq-rw-bpui risk, because of underlying comorbiditiesas mentioned, but no absolute contraindication ( no evidence of Arrhythmia, Ischemia nor CHF) for surgery / anaesthesia.Continue per-operatrive beta estelle, Pt may bleed more than usual Because of on plavix last dose was two days ago, if needed will give blood and blood product per-op and post op.We will follow with you. Thank you Dr. Cosme for providing us the opportunity in taking care of the patient, Lukasz Thomas. Terry Catherine MD BILL
[2018-09-17] MEDS ORDERED: HYDROmorphone 1 mg/ml ISec IVP STA (20:00)
[2018-09-17] MEDS ORDERED: HYDROmorphone 2 mg/ml ISec IVP PRN (20:00)
[2018-09-18] MEDS: Sodium Chloride 0.9% 1,000 ML IV SCH ×2 (02:24→03:58)
[2018-09-18 06:37] LABS: BASO # 0.03 K/mm3 (0.0-2.0); BASO % 0.3 % (0.0-3.0); EOS # 0.5 (0.0-0.7); EOS % 5.5 % (1.5-5.0); HEMOGLOBIN 11.3 g/dL (14.0-18.0); LYMPH # 1.5 (1.2-3.4); LYMPH % 15.7 % (22.0-35.0); MEAN CELL VOLUME 91.9 fl (80.0-105.0); MEAN CORPUSCULAR HEMOGLOBIN 29.6 pg (25.0-35.0); MEAN CORPUSCULAR HGB CONC 32.2 g/dl (31.0-37.0); MEAN PLATELET VOLUME 9.1 fl (7.0-11.0); MONO % 10.4 % (1.0-6.0); RBC 3.82 10^6/uL (3.5-6.1); RED CELL DISTRIBUTION WIDTH 14.8 % (11.5-14.5); WHITE BLOOD COUNT 9.3 10^3/uL (4.5-11.0)
[2018-09-18 06:59] LABS: ALB/GLOB RATIO 1.1 (1.1-1.8); ALBUMIN 3.7 g/dL (3.0-4.8); ALT/SGPT 17 U/L (7-56); AST/SGOT 21 U/L (17-59); BLOOD UREA NITROGEN 25 mg/dL (7-21); CALCIUM 9.1 mg/dL (8.4-10.5); GFR NON-AFRICAN AMERICAN 51
[2018-09-18] MEDS: Insulin Reg-MEDIUM-Coverage SC SCH ×3 (08:15→22:01)
[2018-09-18] MEDS: Metoprolol Succinate 25 mg XL Tab PO SCH (10:01)
--- NOTE | 2018-09-18 10:45 | PN ---
DATE: 09/18/2018 REASON FOR CONSULTATION: Followup, status post fall, status post fracture of left neck femur, preoperative evaluation risk stratification, history of coronary artery disease. SUBJECTIVE: The patient denies any chest pain, shortness of breath or any palpitation. OBJECTIVE GENERAL: Not in apparent distress. VITAL SIGNS: Temperature afebrile, heart rate 96, blood pressure 109/69. HEENT: PERRLA. Extraocular muscles intact. NECK: Supple. No carotid bruits or thyromegaly. CHEST: Clear to auscultation. HEART: S1, S2. Regular. ABDOMEN: Soft. EXTREMITIES: Clubbing, cyanosis negative. LABORATORY DATA: Blood workup as follows; WBC 9.3, hemoglobin 11.7, hematocrit 35.1, platelet count 176. Chemistry shows sodium 140, potassium 4.0, chloride 110, carbon dioxide 22, anion gap of 13, BUN 25, creatinine 1.4. IMPRESSION: A 63-year-old male with past medical history significant for coronary artery disease, status post percutaneous transluminal coronary angioplasty in 01/2016, history of chronic renal insufficiency, who fell down and sustained a fractured hip, sustaining to a left neck femur fracture requiring open reduction and internal fixation. The patient has a recent cardiac catheterization a year ago that revealed patent stent in the left anterior descending, moderate disease in ramus intermedius, right heart catheterization upper limit normal right heart pressure. The patient had moderate aortic stenosis, valve area 1.1 cm2 by catheterization. In view of the above, no absolute contraindication. No evidence of arrhythmia. No evidence of congestive heart failure. No evidence of ischemia. Cleared to go for surgery with ccfvobmn-qa-ykkk risk because of underlying comorbidity. The patient was on Plavix as of day before yesterday, two days before. So there is a little bit of increased risk for preoperative bleeding, discussed with Dr. Bhardwaj so the patient's surgery was postponed for today. The patient can go for surgery. We will keep an eye. May need blood product if the bleeding more than usual because of the increased risk of bleeding from the platelet, because of the Plavix and qualitative dysfunction of the platelet. Discussed with the patient, discussed with Dr. Bhardwaj and discussed with anesthesiologist, also discussed with the nursing staff. We will follow with you. Thank you Dr. Bhardwaj/Dr. Cosme for providing us the opportunity in taking care of Lukasz Thomas. Terry Catherine MD
--- NOTE | 2018-09-18 11:31 | CP.PCM.APN ---
Subjective - Date & Time of Evaluation Date of Evaluation: 09/18/18 Time of Evaluation: 11:20 - Subjective Subjective: pt seenannd evalauted at bedside, pt npo for OR , pt recount that he just fell , at this time deneis sob or cp , reports pain in left hip Review of Systems - Constitutional Additional comments: left hip pain Objective - Vital Signs/Intake and Output Vital Signs (last 24 hours): Temp Pulse Resp BP Pulse Ox 98.5 F 93 H 18 109/69 92 L 09/18/18 06:00 09/18/18 06:00 09/18/18 06:00 09/18/18 06:00 09/18/18 06:00 Intake and Output: 09/18/18 09/18/18 06:59 18:59 Intake Total 716 Output Total 1420 Balance -704 - Medications Medications: Current Medications Amlodipine Besylate (Norvasc) 10 mg PO DAILY [facility] Last Admin: 09/18/18 10:01 Dose: Not Given Atorvastatin Calcium (Lipitor) 40 mg PO DAILY [facility] Last Admin: 09/17/18 10:59 Dose: 40 mg Gabapentin (Neurontin) 300 mg PO TID [facility]; Protocol Last Admin: 09/18/18 10:00 Dose: Not Given Glipizide (Glucotrol) 10 mg PO BID [facility] Last Admin: 09/18/18 10:00 Dose: Not Given Heparin Sodium (Porcine) (Heparin) 5,000 units SC Q8 [facility]; Protocol Last Admin: 09/18/18 05:42 Dose: Not Given Hydralazine HCl (Apresoline) 25 mg PO BID [facility] Last Admin: 09/18/18 10:00 Dose: Not Given Hydromorphone HCl (Dilaudid) 2 mg IVP Q3H PRN PRN Reason: Pain, severe (8-10) Last Admin: 09/18/18 02:24 Dose: 2 mg Sodium Chloride (Sodium Chloride 0.9%) 1,000 mls @ 100 mls/hr IV .Q10H [facility] Last Admin: 09/18/18 03:58 Dose: Not Given Insulin Human Regular (Humulin R Med) 0 units SC ACHS [facility]; Protocol Last Admin: 09/18/18 08:15 Dose: Not Given Metoprolol Succinate (Toprol Xl) 25 mg PO DAILY [facility] Last Admin: 09/18/18 10:01 Dose: Not Given Sertraline HCl (Zoloft) 200 mg PO DAILY [facility] Last Admin: 09/17/18 11:01 Dose: 200 mg - Labs Labs: 09/18/18 06:00 09/18/18 06:00 PT 11.9 SECONDS (9.4-12.5) 09/17/18 04:38 INR 1.05 09/17/18 04:38 APTT 26.7 Seconds (26.9-38.3) L 09/16/18 20:15 - Constitutional Appears: No Acute Distress - Neck Exam Neck Exam: Normal Inspection - Respiratory Exam Respiratory Exam: NORMAL BREATHING PATTERN - Cardiovascular Exam Cardiovascular Exam: +S1, +S2 - GI/Abdominal Exam GI & Abdominal Exam: Soft, Normal Bowel Sounds - Extremities Exam Additional comments: left hip ext rotated - Neurological Exam Neurological Exam: Alert, Awake, Oriented x3 - Psychiatric Exam Psychiatric exam: Normal Affect - Skin Skin Exam: Normal Color, Warm Additional comments: nv intact distally Assessment and Plan - Assessment and Plan (Free Text) Plan: ITS Impressions Cervical Spine CT 09/16/18 16:31 IMPRESSION: No acute fractures. Multilevel degenerative spondylosis most significantly affecting the C3-C4 through the C6-C7 levels with varying degrees of mild to moderate canal stenosis and cord compression as well as variable bilateral foraminal stenosis. Femur X-Ray 09/16/18 16:31 IMPRESSION: Unremarkable radiographs of the left femur. Head CT 09/16/18 16:31 IMPRESSION: No acute intracranial pathology identified. Findings as above. Hip/Pelvis X-Ray 09/16/18 16:31 IMPRESSION: Subcapital hip fracture on the left Chest X-Ray 09/16/18 17:26 IMPRESSION: No active disease. Hip CT 09/16/18 17:53 IMPRESSION: Acute comminuted subcapital fracture of the left femoral neck. Partially healed comminuted fracture of the left superior and inferior pubic rami. 63 yr old male with pmh sig for cad s/p stent, htn, who was in usual state of health when [facility] now [facility] acute comminuted sub- capital fracture of the left femoral neck. Partially healed comminuted fracture of the left superior and inferior pubic rami with orthopedic and cardiology consultation on board for ORIF today at 1pm. will continue to follow clinical course. BPCI/TIC - BPCIA/TIC Educated pt/family on BPCIA/CIR/Med to Bed Programs: N/A Flyers given, including CMS Beneficiary letter: N/A Pt/family verbalized understanding & agreed to program: N/A
[2018-09-18] MEDS ORDERED: Rocuronium 10 mg/ml (5 ml) ONE ×3 (14:13→16:48)
[2018-09-18] MEDS ORDERED: Propofol 10 mg/ml Inj (20 ML) ONE ×2 (14:13→18:41)
[2018-09-18] MEDS ORDERED: Succinylcholine 200 mg/10 ml Inj IV ONE (14:13)
[2018-09-18] MEDS ORDERED: Etomidate 20 mg/10ml Inj IV ONE (14:13)
[2018-09-18] MEDS ORDERED: Phenylephrine 10 mg/ml Inj ONE (14:29)
[2018-09-18] MEDS ORDERED: ePHEDrine 50 mg/ml Inj ONE (14:29)
[2018-09-18] MEDS ORDERED: Sevoflurane - Inhalation Anesthetic Liq (250 ml) ONE (14:34)
--- NOTE | 2018-09-18 14:56 | PN ---
DATE: 09/18/2018 SUBJECTIVE: The patient is a 63-year-old white male in room 267 bed one. He is lying in bed. His only complaint at this time is left hip pain. He denies any chest pain, shortness of breath. There have been no acute events overnight. PHYSICAL EXAMINATION: VITAL SIGNS: Temperature of 98.5, pulse rate of 93, blood pressure 109/69, O2 saturation of 92% on room air. HEENT: PERRLA, EOMI. NECK: Supple. Positive full range of motion. Negative bruits. Negative adenopathy. LUNGS: Clear bilaterally. HEART: Regular rate and rhythm. ABDOMEN: Soft, nontender. Bowel sounds are normoactive. EXTREMITIES: Show no edema. There is a shortening with rotation of the left leg. NEUROLOGIC: There are no focal deficits. ASSESSMENT AND PLAN: The patient has been evaluated by Dr. Terry Catherine and he was cleared for surgery. The patient will undergo surgery today at approximately 1 o'clock in the afternoon. Current problem is fracture, left hip; hyperkalemia; renal insufficiency; femoral neck fracture. Akira Cosme MD
[2018-09-18] MEDS ORDERED: CeFAZolin 1 gm in NS 100ml IVPB ONE (14:58)
[2018-09-18] MEDS ORDERED: Vancomycin 1 g Inj ONE ×2 (17:53→18:11)
--- NOTE | 2018-09-18 18:29 | RAD ---
Date of service: 09/18/2018 PROCEDURE: Left hip/pelvis HISTORY: POST OP LEFT BI-POLAR HIP PLACEMENT COMPARISON: Preoperative study 09/16/2018. TECHNIQUE: Standard protocol for this study/examination. FINDINGS: Satisfactory appearance bipolar left ALVIN. IMPRESSION: Satisfactory postoperative status.
[2018-09-18] MEDS ORDERED: Bupivacaine 0.5% 50 ML IJ ONE (18:44)
[2018-09-18] MEDS ORDERED: Labetalol 5mg/ml (4ml) ONE (19:23)
[2018-09-18] MEDS ORDERED: HYDROmorphone 0.5 mg/0.5 ml ISec IVP PRN (19:46)
[2018-09-18] MEDS ORDERED: Sodium Chloride 0.9% 1,000 ML IV SCH (20:00)
[2018-09-18] MEDS ORDERED: HYDROmorphone 0.5 mg/0.5 ml ISec IVP ONE (20:03)
[2018-09-18] MEDS ORDERED: HYDROmorphone 0.5 mg/0.5 ml ISec ONE (20:03)
[2018-09-18] MEDS ORDERED: Neostigmine Methylsulfate 3mg/3ml Syringe IV ONE (20:05)
[2018-09-18] MEDS ORDERED: HYDROmorphone 1 mg/ml ISec ONE (20:29)
[2018-09-18] MEDS: HYDROmorphone 2 mg/ml ISec SC PRN (21:49)
[2018-09-18] MEDS: ceFAZolin IV 2 gm in 50 mL D5W IVPB SCH (21:59)
[2018-09-19] MEDS: HYDROmorphone 2 mg/ml ISec SC PRN ×4 (02:07→17:32)
--- NOTE | 2018-09-19 05:10 | OP ---
PROCEDURE DATE: 09/18/2018 A 63-year-old male. Dr. Massimo Cosme is his doctor. PREOPERATIVE DIAGNOSIS: Comminuted displaced subcapital fracture of left hip with calcar deficient. POSTOPERATIVE DIAGNOSIS: Comminuted displaced subcapital fracture of left hip calcar deficient. PROCEDURE: Bipolar hip prosthesis utilizing Biomet system press-fit stem of 13 mm stem x 145 mm long with +3 neck and acetabulum of 53 mm. SURGEON: Jaime Bhardwaj DO NUTS AND BOLTS ASSEMBLER SURGEON: Senior Windows Systems Engineer. TYPE OF ANESTHESIA: General endotracheal tube. DESCRIPTION OF PROCEDURE: The patient was taken to the OR. Under general anesthesia via endotracheal tube, we placed on left lateral decubitus position with left side up. Posterolateral incision made of the left hip. He is extremely obese. It was difficulty getting him on the table and to get him into lateral decubitus position with use of position bose. We made a posterolateral incision. It was 6 inches long going down to the fascia rosalio, which was overlying with the incision. Rotators were identified and tagged and slipped and piriformis obturator internus and gemelli and the fracture was identified once the capsule was opened and we removed it, the femoral head measured 53 mm. He was found to have a deficient calcar from all the comminution, so we did the best we can to reaming and rasping up proximal femur to allow us to put in a trial of 13 mm stem size and 145 mm long. We anteverted as much as possible and after multiple attempts, it started to be stable. I had to get x-rays intraoperatively to determine the position because it was so massive body built, it was difficult to see everything, but the x-ray finally looked okay, so we put in the permanent prosthesis after thorough irrigation, debridement, and put in vancomycin powder. We chose up the femoral head cancellous bone to put in the deficient calcar area, then we put in the permanent prosthesis and closed the wound with patching with external rotators to the proximal femur. Deep layer culture, fascia rosalio with #1 Vicryl with subcu with 2-0 Vicryl in multiple layer closure. No Hemovac was utilized, we identified the sciatic nerves intact. We closed the wound with combination of nylon and jori. Sent to the recovery room with abduction pillow and the knee immobilizers. Jaime Bhardwaj DO
[2018-09-19] MEDS: ceFAZolin IV 2 gm in 50 mL D5W IVPB SCH (06:23)
--- NOTE | 2018-09-19 07:15 | CP.PCM.PN ---
Subjective - Date & Time of Evaluation Date of Evaluation: 09/19/18 Time of Evaluation: 06:35 - Subjective Subjective: Awake, alert, pain at surgical site Reason for consultation and follow up: Follow up post operatively, pre-op risk stratification and cardiac clearance, post left hip surgery, history of coronary artery disease Seen and examined by me and Dr. Catherine Objective - Vital Signs/Intake and Output Vital Signs (last 24 hours): Temp Pulse Resp BP Pulse Ox 98 F 95 H 16 141/89 95 09/18/18 20:49 09/18/18 21:51 09/18/18 20:49 09/18/18 21:51 09/18/18 20:49 Intake and Output: 09/19/18 09/19/18 06:59 18:59 Intake Total 1755 Output Total 1200 Balance 555 - Medications Medications: Current Medications Acetaminophen (Tylenol 325mg Tab) 650 mg PO Q6H PRN PRN Reason: Temperature Last Admin: 09/19/18 06:23 Dose: 650 mg Amlodipine Besylate (Norvasc) 10 mg PO DAILY [facility] Last Admin: 09/18/18 10:01 Dose: Not Given Atorvastatin Calcium (Lipitor) 40 mg PO DAILY [facility] Last Admin: 09/18/18 20:00 Dose: Not Given Enoxaparin Sodium (Lovenox) 40 mg SC DAILY [facility]; Protocol Gabapentin (Neurontin) 300 mg PO TID [facility]; Protocol Last Admin: 09/18/18 20:00 Dose: Not Given Glipizide (Glucotrol) 10 mg PO BID [facility] Last Admin: 09/18/18 20:00 Dose: Not Given Hydralazine HCl (Apresoline) 25 mg PO BID [facility] Last Admin: 09/18/18 21:51 Dose: 25 mg Hydromorphone HCl (Dilaudid) 2 mg SC Q3H PRN PRN Reason: Pain, severe (8-10) Last Admin: 09/19/18 05:04 Dose: 2 mg Cefazolin Sodium/Dextrose (Ancef Iv 2 Gm Duplex) 2 gm in 50 mls @ 50 mls/hr IVPB [id number] [facility] Stop: 09/19/18 07:57 Last Admin: 09/19/18 06:23 Dose: 50 mls/hr Insulin Human Regular (Humulin R Med) 0 units SC [facility]; Protocol Last Admin: 09/18/18 22:01 Dose: Not Given Metoprolol Succinate (Toprol Xl) 25 mg PO DAILY [facility] Last Admin: 09/18/18 10:01 Dose: Not Given Sertraline HCl (Zoloft) 200 mg PO DAILY [facility] Last Admin: 09/18/18 20:00 Dose: Not Given - Labs Labs: 09/18/18 06:00 09/18/18 06:00 PT 11.9 SECONDS (9.4-12.5) 09/17/18 04:38 INR 1.05 09/17/18 04:38 APTT 26.7 Seconds (26.9-38.3) L 09/16/18 20:15 - Constitutional Appears: Non-toxic, No Acute Distress - Head Exam Head Exam: NORMAL INSPECTION, NORMOCEPHALIC - Eye Exam Eye Exam: Normal appearance Pupil Exam: NORMAL ACCOMODATION - ENT Exam ENT Exam: Mucous Membranes Moist, Normal Exam - Respiratory Exam Respiratory Exam: Decreased Breath Sounds, Clear to Ausculation Bilateral, NORMAL BREATHING PATTERN - Cardiovascular Exam Cardiovascular Exam: Tachycardia, +S1, +S2 Additional comments: Telemetry 110/min - GI/Abdominal Exam GI & Abdominal Exam: Soft, Normal Bowel Sounds - Extremities Exam Additional comments: right hip dressing, abductor pillow intact - Neurological Exam Neurological Exam: Alert, Awake, Oriented x3 - Psychiatric Exam Psychiatric exam: Normal Affect, Normal Mood - Skin Skin Exam: Dry, Normal Color, Warm Assessment and Plan - Assessment and Plan (Free Text) Assessment: A 63 year old male who came in to the ER due to fall complaining of left hip pain. Hip X ray and CT showed left neck femur fracture requiring surgery. Surgery was postponed for a day due to patient on Plavix. History of coronary artery disease post PTCA 01/2016, chronic renal insufficiency,hypertension, CVA,diabetes, current smoker. Recent cardiac cath on 10/20/17 showed patent stent of LAD, moderate disease in ramus, moderate aortic stenosis. Had left hip surgery yesterday by Dr. Bhardwaj. Pain management. cardiac status stable. Restart Plavix and Aspirin tomorrow. Plan: Complaints of left hip pain,denies chest pain Dilaudid PRN Heart rate tachycardia maybe due to pain Blood pressure controlled On Norvasc 10 mg daily,Lipitor 40 mg daily, Apreoline 25 mg BID, Toprol XL 25 mg daily, Lovenox 40 mg daily Will restart Plavix and Aspirin in am if no signs of bleeding H/H stable Continue current treatment Continue current medications Will follow up Plan and treatment discussed with Dr. Catherine
[2018-09-19 07:37] LABS: BASO # 0.02 K/mm3 (0.0-2.0); BASO % 0.2 % (0.0-3.0); EOS # 0.2 (0.0-0.7); EOS % 1.7 % (1.5-5.0); HEMOGLOBIN 10.4 g/dL (14.0-18.0); LYMPH # 1.1 (1.2-3.4); LYMPH % 10.6 % (22.0-35.0); MEAN CELL VOLUME 91.3 fl (80.0-105.0); MEAN CORPUSCULAR HEMOGLOBIN 28.4 pg (25.0-35.0); MEAN CORPUSCULAR HGB CONC 31.1 g/dl (31.0-37.0); MEAN PLATELET VOLUME 9.3 fl (7.0-11.0); MONO # 1.2 (0.1-0.6); MONO % 11.5 % (1.0-6.0); RBC 3.66 10^6/uL (3.5-6.1); RED CELL DISTRIBUTION WIDTH 16.8 % (11.5-14.5); WHITE BLOOD COUNT 10.2 10^3/uL (4.5-11.0)
[2018-09-19] MEDS: Insulin Reg-MEDIUM-Coverage SC SCH ×4 (08:19→21:57)
[2018-09-19 09:05] LABS: ALB/GLOB RATIO 0.9 (1.1-1.8); CALCIUM 7.9 mg/dL (8.4-10.5)
[2018-09-19] MEDS: Metoprolol Succinate 25 mg XL Tab PO SCH (09:25)
[2018-09-19] MEDS ORDERED: Metoprolol Succinate 25 mg XL Tab PO ONE (10:00)
[2018-09-19] MEDS ORDERED: Enoxaparin 40 mg Syringe SC SCH (10:00)
[2018-09-19] MEDS: Metoprolol Succinate 50 mg XL Tab PO SCH (10:02)
[2018-09-19] MEDS: Sodium Chloride 0.9% 1,000 ML IV SCH (10:56)
--- NOTE | 2018-09-19 12:18 | PN ---
SUBJECTIVE: The patient was seen and examined at bedside on the telemetry gotti. No acute events overnight. He remains afebrile, hemodynamically stable and is doing well s/p surgical repair of his left hip fracture. This morning he feels okay, states his pain is adequately controlled with his current analgesic regimen and offers no complaints. OBJECTIVE: VITAL SIGNS: Temperature 98.7, pulse 95, blood pressure 141/89, respiratory rate 18, oxygen saturation 95% on 2 liters nasal cannula. GENERAL: No apparent distress. HEENT: PERRL, EOMI. No scleral icterus. No conjunctival pallor. NECK: No JVD, no bruits. LUNGS: Clear to auscultation. CARDIOVASCULAR: Regular rate and rhythm. Normal S1 and S2. Grade III/ JO to LLSB. ABDOMEN: Normoactive bowel sounds, soft, nontender, nondistended. EXTREMITIES: No edema. Surgical site appears clean, dry and intact. NEUROLOGIC: Awake, alert and oriented x 3. No focal motor deficits. LABORATORY DATA: WBC 10 with 76% neutrophils, hemoglobin 10.4, hematocrit 33, platelets 160. Sodium 135, potassium 5.3, chloride 107, bicarb 19, BUN 27, creatinine 1.8, glucose 216. ASSESSMENT: The patient is a 63-year-old man with multiple medical comorbidities who presented s/p fall with resultant left hip fracture who is now s/p ORIF POD #1. PLAN: 1. Acute left hip fracture s/p ORIF POD #1. Continue with postoperative care as per Dr. Bhardwaj. Continue with current analgesic regimen. Continue with PT. 2. Hypertension. Blood pressure controlled. Continue Amlodipine 10 mg p.o. daily, Hydralazine 25 mg p.o. b.i.d. and Toprol XL 50 mg p.o. daily. 3. CAD s/p PCI with stent placement. Continue Lipitor 40 mg p.o. daily and Toprol XL 50 mg p.o. daily. We will resume Aspirin 81 mg p.o. daily and Plavix 75 mg p.o. daily when ok from surgical standpoint. 4. [id number] diabetes mellitus. Continue Metformin 1000 mg p.o. b.i.d., Glipizide 10 mg p.o. b.i.d. and medium-dose insulin sliding scale. 5. Hyperlipidemia. Continue Lipitor 40 mg p.o. daily. 6. PVD. Continue Lipitor 40 mg p.o. daily and resume Aspirin 81 mg p.o. daily when ok from surgical standpoint. 7. Anxiety disorder. Continue Zoloft 200 mg p.o. daily. 8. Osteoarthritis of bilateral hips. Continue current analgesic regimen. 9. Prophylaxis. Continue Protonix for GI prophylaxis and Lovenox for DVT prophylaxis. CODE STATUS: Full code. Massimo Cosme MD MTDD
[2018-09-19] MEDS ORDERED: Enoxaparin 40 mg Syringe SC ONE (18:29)
[2018-09-20] MEDS: Sodium Chloride 0.9% 1,000 ML IV SCH (06:10)
[2018-09-20] MEDS: HYDROmorphone 2 mg/ml ISec SC PRN ×2 (06:55→12:29)
--- NOTE | 2018-09-20 07:49 | CP.PCM.PN ---
Subjective - Date & Time of Evaluation Date of Evaluation: 09/20/18 Time of Evaluation: 06:40 - Subjective Subjective: Awake, alert, pain on surgical site when moving Reason for consultation and follow up: Follow up post operatively, pre-op risk stratification and cardiac clearance, post left hip surgery, history of coronary artery disease Seen and examined by me and Dr. Catherine Objective - Vital Signs/Intake and Output Vital Signs (last 24 hours): Temp Pulse Resp BP Pulse Ox 98.1 F 105 H 20 138/74 93 L 09/20/18 06:00 09/20/18 06:00 09/20/18 06:00 09/20/18 06:00 09/20/18 06:00 Intake and Output: 09/20/18 09/20/18 06:59 18:59 Intake Total 1080 Output Total 1080 Balance 0 - Medications Medications: Current Medications Acetaminophen (Tylenol 325mg Tab) 650 mg PO Q6H PRN PRN Reason: Temperature Last Admin: 09/19/18 06:23 Dose: 650 mg Amlodipine Besylate (Norvasc) 10 mg PO DAILY [facility] Last Admin: 09/19/18 09:25 Dose: 10 mg Aspirin (Aspirin Chewable) 81 mg PO DAILY [facility] Last Admin: 09/19/18 10:43 Dose: Not Given Atorvastatin Calcium (Lipitor) 40 mg PO DAILY [facility] Last Admin: 09/19/18 09:24 Dose: 40 mg Clopidogrel Bisulfate (Plavix) 75 mg PO DAILY [facility] Gabapentin (Neurontin) 300 mg PO TID [facility]; Protocol Last Admin: 09/19/18 17:37 Dose: 300 mg Glipizide (Glucotrol) 10 mg PO BID [facility] Last Admin: 09/19/18 17:37 Dose: 10 mg Hydralazine HCl (Apresoline) 25 mg PO BID [facility] Last Admin: 09/19/18 17:38 Dose: 25 mg Hydromorphone HCl (Dilaudid) 2 mg SC Q3H PRN PRN Reason: Pain, severe (8-10) Last Admin: 09/20/18 06:55 Dose: 2 mg Sodium Chloride (Sodium Chloride 0.9%) 1,000 mls @ 50 mls/hr IV .Q20H [facility] Stop: 09/20/18 23:59 Last Admin: 09/20/18 06:10 Dose: 50 mls/hr Insulin Human Regular (Humulin R Med) 0 units SC ACHS [facility]; Protocol Last Admin: 09/19/18 21:57 Dose: Not Given Metoprolol Succinate (Toprol Xl) 50 mg PO DAILY [facility] Last Admin: 09/19/18 10:02 Dose: Not Given Sertraline HCl (Zoloft) 200 mg PO DAILY [facility] Last Admin: 09/19/18 09:23 Dose: 200 mg - Labs Labs: 09/19/18 07:00 09/19/18 07:00 PT 11.9 SECONDS (9.4-12.5) 09/17/18 04:38 INR 1.05 09/17/18 04:38 APTT 26.7 Seconds (26.9-38.3) L 09/16/18 20:15 - Constitutional Appears: Non-toxic, No Acute Distress - Head Exam Head Exam: NORMAL INSPECTION, NORMOCEPHALIC - Eye Exam Eye Exam: Normal appearance Pupil Exam: NORMAL ACCOMODATION - ENT Exam ENT Exam: Mucous Membranes Moist, Normal Exam - Respiratory Exam Respiratory Exam: Decreased Breath Sounds, Clear to Ausculation Bilateral, NORMAL BREATHING PATTERN - Cardiovascular Exam Cardiovascular Exam: Tachycardia, +S1, +S2 - GI/Abdominal Exam GI & Abdominal Exam: Soft, Normal Bowel Sounds - Extremities Exam Extremities Exam: Normal Capillary Refill Additional comments: left hip dressing abductor pillow intact - Neurological Exam Neurological Exam: Alert, Awake, Oriented x3 - Psychiatric Exam Psychiatric exam: Normal Affect, Normal Mood - Skin Skin Exam: Dry, Normal Color, Warm Assessment and Plan - Assessment and Plan (Free Text) Assessment: A 63 year old male who came in to the ER due to fall complaining of left hip pain. Hip X ray and CT showed left neck femur fracture requiring surgery. Surgery was postponed for a day due to patient on Plavix. History of coronary artery disease post PTCA 01/2016, chronic renal insufficiency,hypertension, CVA,diabetes, current smoker. Recent cardiac cath on 10/20/17 showed patent stent of LAD, moderate disease in ramus, moderate aortic stenosis. Had left hip surgery done by Dr. Bhardwaj. Cardiac status stable. Will restart Aspirin and Lovenox today. Will discontinue Plavix as it has been almost more than 2 years from PTCA and recent cardiac cath in 2018 showed patent stent. denies chest pain. No evidence of myocardial ischemia. Increased Toprol yesterday for tachycardia. Pain management. Will restart Lovenox too for DVT prophylaxis. Plan: Post left hip surgery POD#2 No distress, complaints of left hip pain, when moving PRN Dilaudid given Heart rate tachycardia Increased Toprol to 50 mg daily Blood pressure controlled On Norvasc 10 mg daily,Lipitor 40 mg daily, Apresoline 25 mg BID, Toprol XL 50mg daily, Lovenox 40 mg daily Will restart Lovenox and Aspirin today Continue current treatment Continue current medications Physical therapy Smoking cessation Will follow up Plan and treatment discussed with Dr. Catherine
[2018-09-20 07:56] LABS: BASO # 0.01 K/mm3 (0.0-2.0); BASO % 0.1 % (0.0-3.0); EOS # 0.1 (0.0-0.7); EOS % 1.2 % (1.5-5.0); HEMOGLOBIN 9.4 g/dL (14.0-18.0); LYMPH # 1.2 (1.2-3.4); LYMPH % 12.1 % (22.0-35.0); MEAN CELL VOLUME 89.8 fl (80.0-105.0); MEAN CORPUSCULAR HEMOGLOBIN 28.9 pg (25.0-35.0); MEAN CORPUSCULAR HGB CONC 32.2 g/dl (31.0-37.0); MEAN PLATELET VOLUME 9.7 fl (7.0-11.0); RBC 3.25 10^6/uL (3.5-6.1); RED CELL DISTRIBUTION WIDTH 16.1 % (11.5-14.5); WHITE BLOOD COUNT 9.9 10^3/uL (4.5-11.0)
[2018-09-20 08:03] LABS: ALB/GLOB RATIO 0.9 (1.1-1.8); ALBUMIN 3.1 g/dL (3.0-4.8); CALCIUM 8.4 mg/dL (8.4-10.5)
[2018-09-20] MEDS: Insulin Reg-MEDIUM-Coverage SC SCH ×4 (08:10→21:16)
[2018-09-20] MEDS: Enoxaparin 40 mg Syringe SC SCH (09:24)
[2018-09-20] MEDS: Metoprolol Succinate 50 mg XL Tab PO SCH (09:25)
[2018-09-20] MEDS ORDERED: Metoprolol Succinate 25 mg XL Tab PO ONE (10:01)
--- NOTE | 2018-09-20 20:09 | CP.PCM.PN ---
Subjective - Date & Time of Evaluation Date of Evaluation: 09/20/18 Time of Evaluation: 09:00 - Subjective Subjective: Subjective: The patient was seen and examined at bedside on the telemetry gotti. No acute events overnight. He is doing well s/p ORIF of left hip fx. Objective: VS: T 99.1, P 88, BP 114/75, RR 19 and O2 saturation 96% 2L NC General: NAD HEENT: PERRL, EOMI, no scleral icterus, no conjunctival pallor Neck: No JVD Lungs: CTA Cardiovascular: RRR, (+) Grade III/ JO to LLSB Abdomen: Normoactive bowel sounds, soft, NT, ND Ext: surgical site appears c/d/i Neurologic: AAO x 3, no focal motor deficits Laboratory Data: WBC 9.9, Hb 9.4, Hct 29, Plt 172 CMP reviewed and BUN 28, Cr 1.7 Assessment: The patient is a 63 yo man with multiple medical comorbidities admitted s/p fall with resultant left hip fracture who is now s/p ORIF POD #2 Plan: 1. Acute left hip fracture s/p ORIF POD #2. Continue post-op care as per Dr. Bhardwaj. 2. HTN. BP controlled. Continue current medications. 3. CAD s/p PCI with stent placement. Input from Dr. Catherine noted. Continue Toprol XL, ASA and Lipitor. 4. NIDDM. Continue current medications. 5. HL. Continue Lipitor. 6. PVD. Continue Lipitor and ASA. 7. Anxiety disorder. Continue Zoloft. 8. OA of b/l hips. Continue current care. 9. Prophylaxis. Continue Protonix for GI prophylaxis and Lovenox for DVT prophylaxis. CODE STATUS: Full Code. Objective - Vital Signs/Intake and Output Vital Signs (last 24 hours): Temp Pulse Resp BP Pulse Ox 99.1 F 88 19 114/75 96 09/20/18 18:15 09/20/18 18:15 09/20/18 18:15 09/20/18 18:15 09/20/18 18:15 Intake and Output: 09/20/18 09/21/18 18:59 06:59 Intake Total 600 Balance 600 - Medications Medications: Current Medications Acetaminophen (Tylenol 325mg Tab) 650 mg PO Q6H PRN PRN Reason: Temperature Last Admin: 09/19/18 06:23 Dose: 650 mg Amlodipine Besylate (Norvasc) 10 mg PO DAILY [facility] Last Admin: 09/20/18 09:25 Dose: 10 mg Aspirin (Aspirin Chewable) 81 mg PO DAILY [facility] Last Admin: 09/20/18 09:25 Dose: 81 mg Atorvastatin Calcium (Lipitor) 40 mg PO DAILY [facility] Last Admin: 09/20/18 09:25 Dose: 40 mg Docusate Sodium (Colace) 100 mg PO BID [facility] Last Admin: 09/20/18 17:24 Dose: Not Given Enoxaparin Sodium (Lovenox) 40 mg SC DAILY [facility]; Protocol Last Admin: 09/20/18 09:24 Dose: 40 mg Gabapentin (Neurontin) 300 mg PO TID [facility]; Protocol Last Admin: 09/20/18 17:21 Dose: 300 mg Glipizide (Glucotrol) 10 mg PO BID [facility] Last Admin: 09/20/18 17:22 Dose: 10 mg Hydralazine HCl (Apresoline) 25 mg PO BID [facility] Last Admin: 09/20/18 17:22 Dose: 25 mg Hydromorphone HCl (Dilaudid) 2 mg SC Q3H PRN PRN Reason: Pain, severe (8-10) Last Admin: 09/20/18 12:29 Dose: 2 mg Sodium Chloride (Sodium Chloride 0.9%) 1,000 mls @ 50 mls/hr IV .Q20H [facility] Stop: 09/20/18 23:59 Last Admin: 09/20/18 06:10 Dose: 50 mls/hr Insulin Human Regular (Humulin R Med) 0 units SC [facility]; Protocol Last Admin: 09/20/18 17:21 Dose: 3 unit Metoprolol Succinate (Toprol Xl) 50 mg PO DAILY [facility] Last Admin: 09/20/18 09:25 Dose: 50 mg Sennosides (Senokot Tab) 17.2 mg PO HS [facility] Sertraline HCl (Zoloft) 200 mg PO DAILY [facility] Last Admin: 09/20/18 09:24 Dose: 200 mg - Labs Labs: 09/20/18 07:00 09/20/18 07:00 PT 11.9 SECONDS (9.4-12.5) 09/17/18 04:38 INR 1.05 09/17/18 04:38 APTT 26.7 Seconds (26.9-38.3) L 09/16/18 20:15
[2018-09-20 23:16] VITALS: RESP 20
[2018-09-21] MEDS: HYDROmorphone 2 mg/ml ISec SC PRN ×3 (04:59→16:47)
--- NOTE | 2018-09-21 05:51 | CP.PCM.PN ---
Subjective - Date & Time of Evaluation Date of Evaluation: 09/21/18 Time of Evaluation: 06:10 - Subjective Subjective: Lying in bed, no distress, Awake, alert Reason for consultation and follow up: Follow up post operatively, pre-op risk stratification and cardiac clearance, post left hip surgery, history of coronary artery disease, post stents Seen and examined by me and Dr. Catherine Objective - Vital Signs/Intake and Output Vital Signs (last 24 hours): Temp Pulse Resp BP Pulse Ox 98.3 F 89 20 129/78 98 09/20/18 23:15 09/21/18 02:00 09/20/18 23:15 09/20/18 23:15 09/20/18 23:15 Intake and Output: 09/20/18 09/21/18 18:59 06:59 Intake Total 960 Output Total 350 Balance 610 - Medications Medications: Current Medications Acetaminophen (Tylenol 325mg Tab) 650 mg PO Q6H PRN PRN Reason: Temperature Last Admin: 09/19/18 06:23 Dose: 650 mg Amlodipine Besylate (Norvasc) 10 mg PO DAILY [facility] Last Admin: 09/20/18 09:25 Dose: 10 mg Aspirin (Aspirin Chewable) 81 mg PO DAILY [facility] Last Admin: 09/20/18 09:25 Dose: 81 mg Atorvastatin Calcium (Lipitor) 40 mg PO DAILY [facility] Last Admin: 09/20/18 09:25 Dose: 40 mg Docusate Sodium (Colace) 100 mg PO BID [facility] Last Admin: 09/20/18 17:24 Dose: Not Given Enoxaparin Sodium (Lovenox) 40 mg SC DAILY [facility]; Protocol Last Admin: 09/20/18 09:24 Dose: 40 mg Gabapentin (Neurontin) 300 mg PO TID [facility]; Protocol Last Admin: 09/20/18 17:21 Dose: 300 mg Glipizide (Glucotrol) 10 mg PO BID [facility] Last Admin: 09/20/18 17:22 Dose: 10 mg Hydralazine HCl (Apresoline) 25 mg PO BID [facility] Last Admin: 09/20/18 17:22 Dose: 25 mg Hydromorphone HCl (Dilaudid) 2 mg SC Q3H PRN PRN Reason: Pain, severe (8-10) Last Admin: 09/21/18 04:59 Dose: 2 mg Insulin Human Regular (Humulin R Med) 0 units SC ACHS [facility]; Protocol Last Admin: 09/20/18 21:16 Dose: Not Given Metoprolol Succinate (Toprol Xl) 50 mg PO DAILY [facility] Last Admin: 09/20/18 09:25 Dose: 50 mg Sennosides (Senokot Tab) 17.2 mg PO HS [facility] Last Admin: 09/20/18 21:17 Dose: 17.2 mg Sertraline HCl (Zoloft) 200 mg PO DAILY [facility] Last Admin: 09/20/18 09:24 Dose: 200 mg - Labs Labs: 09/20/18 07:00 09/20/18 07:00 PT 11.9 SECONDS (9.4-12.5) 09/17/18 04:38 INR 1.05 09/17/18 04:38 APTT 26.7 Seconds (26.9-38.3) L 09/16/18 20:15 - Constitutional Appears: Non-toxic, No Acute Distress - Head Exam Head Exam: NORMAL INSPECTION, NORMOCEPHALIC - Eye Exam Eye Exam: Normal appearance Pupil Exam: NORMAL ACCOMODATION - ENT Exam ENT Exam: Mucous Membranes Moist, Normal Exam - Respiratory Exam Respiratory Exam: Decreased Breath Sounds, Clear to Ausculation Bilateral, NORMAL BREATHING PATTERN - Cardiovascular Exam Cardiovascular Exam: REGULAR RHYTHM, +S1, +S2 - GI/Abdominal Exam GI & Abdominal Exam: Soft, Normal Bowel Sounds - Extremities Exam Extremities Exam: Normal Capillary Refill Additional comments: left hip dressing - Neurological Exam Neurological Exam: Alert, Awake, Oriented x3 - Psychiatric Exam Psychiatric exam: Normal Affect, Normal Mood - Skin Skin Exam: Dry, Normal Color, Warm Assessment and Plan - Assessment and Plan (Free Text) Assessment: A 63 year old male who came in to the ER due to fall complaining of left hip pain. Hip X ray and CT showed left neck femur fracture requiring surgery. Surgery was postponed for a day due to patient on Plavix. History of coronary artery disease post PTCA 01/2016, chronic renal insufficiency,hypertension, CVA,diabetes, current smoker. Recent cardiac cath on 10/20/17 showed patent stent of LAD, moderate disease in ramus, moderate aortic stenosis. Had left hip surgery done by Dr. Bhardwaj. Cardiac status stable. Will restart Aspirin and Lovenox today. Will discontinue Plavix as it has been almost more than 2 years from PTCA and recent cardiac cath in 2018 showed patent stent. Denies chest pain. No evidence of myocardial ischemia. Lovenox for DVT prophylaxis. Heart rate controlled. Cardiac status stable. Physical therapy. Discharge planning. Will discontinue telemetry. Plan: No distress, feels okay Post left hip surgery POD#3 Heart rate controlled Blood pressure controlled Will discontinue telemetry On Norvasc 10 mg daily,Lipitor 40 mg daily, Apresoline 25 mg BID, Toprol XL 50mg daily, Lovenox 40 mg daily Continue current treatment Continue current medications Physical therapy Smoking cessation Discharge planning Will follow up Plan and treatment discussed with Dr. Catherine
[2018-09-21 07:13] LABS: BASO # 0.02 K/mm3 (0.0-2.0); BASO % 0.2 % (0.0-3.0); EOS # 0.3 (0.0-0.7); EOS % 3.9 % (1.5-5.0); HEMOGLOBIN 8.6 g/dL (14.0-18.0); LYMPH # 0.8 (1.2-3.4); LYMPH % 9.8 % (22.0-35.0); MEAN CELL VOLUME 90.1 fl (80.0-105.0); MEAN CORPUSCULAR HEMOGLOBIN 28.4 pg (25.0-35.0); MEAN CORPUSCULAR HGB CONC 31.5 g/dl (31.0-37.0); MEAN PLATELET VOLUME 9.5 fl (7.0-11.0); MONO # 0.7 (0.1-0.6); MONO % 8.8 % (1.0-6.0); RBC 3.03 10^6/uL (3.5-6.1); RED CELL DISTRIBUTION WIDTH 16.1 % (11.5-14.5); WHITE BLOOD COUNT 8.4 10^3/uL (4.5-11.0)
[2018-09-21 07:25] LABS: ALB/GLOB RATIO 0.9 (1.1-1.8); CALCIUM 8.7 mg/dL (8.4-10.5)
--- NOTE | 2018-09-21 07:48 | PN ---
DATE: 09/19/2018 LOCATION: Room 267, bed 1. SUBJECTIVE: The patient underwent left hip bipolar prosthesis for displaced and comminuted subcapital fracture yesterday. He had two units of blood packed cells in the OR because he was on Plavix and we replaced the blood that needed to be. His hemoglobin today is 10 g and hematocrit 33. We will try to get him up out of bed with the help of therapy, but he does need an abduction pillow and a knee immobilizer because of the extent of the surgery and the prosthesis, which could dislocate if he inadvertently internally rotates his leg or hyper-reflexes the hip or goes into adduction, so watch him carefully. We will repeat the blood work in the morning. Otherwise, the wound is dry and his pain is controlled. Jaime Bhardwaj DO
[2018-09-21] MEDS: Insulin Reg-MEDIUM-Coverage SC SCH ×3 (08:23→16:38)
--- NOTE | 2018-09-21 08:47 | PN ---
DATE: 09/20/2018 UPDATE REPORT SUBJECTIVE: The patient underwent left hip subcapital fracture surgery of the left hip bipolar replacement on 09/18/2018. He is doing well as far as hemodynamic status. He does have evidence of a left footdrop probably caused from the difficult surgical course that I had to go through to reduce the hip. He did have a mild left CVA in the past and I would have thought that still he had some weakness of his left leg before surgery, but now he says he cannot dorsiflex his left foot. 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 He was out of bed yesterday without undue trouble. ASSESSMENT AND PLAN: We will continue therapy and I told him he may need a dropfoot brace on the left if it does not come back in the next two weeks and then hopefully it will come back in three to fours months, because I did see the sciatic nerve and it was intact or it must have been traumatized with the multiple attempts trying to reduce the hip because of his large frame and lack of good assistance. I will follow him and told him that he might need a dropfoot brace. Other than that he is doing okay. The x-rays shows a well reduced fracture, but the calcar was also fractured and deficient from the extensive comminution from the trauma and the surgery. Otherwise, the wound is dry and he should be going to subacute rehab in a couple of days.if he ever where the [facility] surg in the future [facility]. Jaime Bhardwaj DO BILL
[2018-09-21] MEDS: Enoxaparin 40 mg Syringe SC SCH (09:34)
[2018-09-21] MEDS: Metoprolol Succinate 50 mg XL Tab PO SCH (09:35)
--- NOTE | 2018-09-21 10:15 | PN ---
SUBJECTIVE: The patient was seen and examined at bedside on the telemetry gotti. No acute events overnight. He remains afebrile, hemodynamically stable and was doing well s/p ORIF of his left hip fracture. He is pending transfer to [facility] for continued rehab. OBJECTIVE: VITAL SIGNS: Temperature 98.2, pulse 90, blood pressure 134/73, respiratory rate 20, oxygen saturation 96% on 2L NC. GENERAL: No apparent distress. HEENT: PERRL, EOMI. No scleral icterus. No conjunctival pallor. NECK: No JVD, no bruits. LUNGS: Clear to auscultation. CARDIOVASCULAR: Regular rate and rhythm. Normal S1, S2. Grade III/ JO to LLSB. ABDOMEN: Normoactive bowel sounds, soft, nontender, and nondistended. EXTREMITIES: No edema. Surgical site appears clean, dry and intact. NEUROLOGIC: Awake, alert and oriented x 3. No focal motor deficits. LABORATORY DATA: WBC 8.4 with 77% neutrophils, hemoglobin 8.6, hematocrit 27, platelets 192. Sodium 138, potassium 4.8, chloride 109, bicarb 23, BUN 36, creatinine 1.8, glucose 140. ASSESSMENT: The patient is a 63-year-old man with multiple medical comorbidities who presented s/p fall with resultant left hip fracture who is now s/p ORIF POD #3. PLAN: 1. Acute left hip fracture s/p ORIF POD #3. Continue with postoperative care as per Dr. Bhardwaj. Arrangements are being made for transfer to subacute rehab. Continue with PT. 2. Hypertension. Blood pressure controlled. Continue Amlodipine 10 mgp.o. daily, Hydralazine 25 mg p.o. b.i.d. and Toprol XL 50 mg p.o. daily 3. CAD s/p PCI with stent placement. Continue Lipitor 40 mg p.o. daily, Toprol XL 50 mg p.o. daily and Aspirin 81 mg p.o. daily. Plavix has been discontinued as the patient is more than 1 year removed from his stent placement. 4. Noninsulin-dependent diabetes mellitus. Continue Metformin 1000 mg p.o. b.i.d., Glipizide 10 mg p.o. b.i.d. and medium-dose insulin sliding scale. 5. Hyperlipidemia. Continue Lipitor 40 mg p.o. daily 6. PVD. Continue Lipitor 40 mg p.o. daily and Aspirin 81 mg p.o. daily. 7. Anxiety disorder. Continue Zoloft 200 mg p.o. daily. 8. Osteoarthritis of bilateral hips. 9. Prophylaxis. Continue Protonix for GI prophylaxis and Lovenox for DVT prophylaxis. CODE STATUS: Full code. Massimo Cosme MD [facility]
[2018-09-21 13:57] VITALS: TEMP 99.1; O2SAT 97
[2018-09-21 17:46] VITALS: BP 109/66; PULSE 80
[2018-09-22] MEDS ORDERED: Multivitamin With Minerals Tab PO SCH (08:00)
--- NOTE | 2018-09-23 03:13 | DS ---
ADMITTING DIAGNOSIS: Acute comminuted subcapital fracture of the left femoral neck. DISCHARGE DIAGNOSIS: Acute comminuted subcapital fracture of the left femoral neck s/p ORIF. SECONDARY DIAGNOSES: Hypertension, hyperlipidemia, CAD s/p PCI with stent placement, non-insulin dependent diabetes mellitus, PVD, anxiety disorder and history of CVA. CONSULTATIONS: Dr. Bhardwaj (Orthopedic Surgery) and Dr. Hartley (Cardiology). IMAGING STUDIES: 1. Chest x-ray demonstrated no acute pathology. 2. CT of the head without contrast demonstrated no acute pathology. 3. CT of the cervical spine without contrast demonstrated multilevel degenerative spondylosis with [id number] canal stenosis but otherwise no acute pathology. 4. CT of the right hip without contrast demonstrated an acute comminuted subcapital fracture of the left femoral neck. DIAGNOSTIC STUDIES: None. PROCEDURES: 1. Orthopedic repair of the acute comminuted subcapital fracture of the left femoral neck. HISTORY OF PRESENT ILLNESS: The patient is a 63-year-old man with multiple medical comorbidities who presented s/p fall with resultant left hip fracture. He was walking into a store when he suddenly fell and sustained trauma to his left hip. He is unsure how he fell but he denied chest pain, palpitations, aura or loss of consciousness associated with this fall. He developed immediate onset of pain with inability to bear weight. EMS was called and he was taken to the [facility] ED for evaluation. Workup in the ED demonstrated an acute comminuted subcapital fracture of the left femoral neck. He was started on analgesic medications and subsequently admitted for orthopedic evaluation. HOSPITAL COURSE: Upon admission to the telemetry gotti he was evaluated by Dr. Hartley of Cardiology given his extensive cardiac history. After evaluation with Dr. Hartley he was deemed an intermediate to high risk candidate for an intermediate risk procedure and was cleared to proceed without any further cardiopulmonary workup. He was taken to the OR with Dr. Bhardwaj where he went underwent successful repair of his left hip fracture with no postprocedure complications noted. The remainder of his hospital course was unremarkable. Arrangements were made for transfer to [facility] for continued physical therapy and on hospital day #4 he was deemed stable for discharge. CONDITION: Fair, improved. DISPOSITION: [facility]. DISCHARGE MEDICATIONS: Aspirin 81 mg p.o. daily, Toprol XL 50 mg p.o. daily, Lipitor 40 mg p.o. daily, Norvasc 10 mg p.o. daily, Hydralazine 25 mg p.o. b.i.d., Metformin 1000 mg p.o. b.i.d., Glipizide 10 mg p.o. b.i.d., Glimepiride 2 mg p.o. daily, Zoloft 200 mg p.o. daily, Tramadol 50 mg p.o. q. 4 hours p.r.n. pain and Gabapentin 300 mg p.o. t.i.d. DISCHARGE INSTRUCTIONS: The patient was advised to adhere to postprocedure instructions as per Dr. Bhardwaj. FOLLOWUP: The patient to follow up with Dr. Bhardwaj as scheduled. The patient to follow up with his PMD within 1 week of discharge. The patient to follow up with Dr. Hartley as scheduled. Massimo Cosme MD [facility]
== END 2018-09-21 19:38 | DRG 470 ==
LOC: ED 16:16 → ERH 21:21 → 2RNO 09-17 08:26 → 5RNO 09-21 11:33
PROVIDERS: ADMIT Student in an Organized Health Care Education/Training Program; ATTEND Student in an Organized Health Care Education/Training Program
PROC: 30233N1 Transfusion of Nonautologous Red Blood Cells into Peripheral Vein, Percutaneous Approach (ICD-10-PCS; 2018-09-18)
PROC: 0SRS0JA Replacement of Left Hip Joint, Femoral Surface with Synthetic Substitute, Uncemented, Open Approach (ICD-10-PCS; principal; 2018-09-18 13:00)
DX: S72.012A Unspecified intracapsular fracture of left femur, initial encounter for closed fracture (principal); I25.10 Atherosclerotic heart disease of native coronary artery without angina pectoris; E87.5 Hyperkalemia; E11.51 Type 2 diabetes mellitus with diabetic peripheral angiopathy without gangrene; I12.9 Hypertensive chronic kidney disease with stage 1 through stage 4 chronic kidney disease, or unspecified chronic kidney disease; E11.22 Type 2 diabetes mellitus with diabetic chronic kidney disease; N18.9 Chronic kidney disease, unspecified; M16.0 Bilateral primary osteoarthritis of hip; E78.5 Hyperlipidemia, unspecified; F41.9 Anxiety disorder, unspecified; I35.0 Nonrheumatic aortic (valve) stenosis; I45.10 Unspecified right bundle-branch block; M47.812 Spondylosis without myelopathy or radiculopathy, cervical region; M48.02 Spinal stenosis, cervical region; F17.200 Nicotine dependence, unspecified, uncomplicated; W01.0XXA Fall on same level from slipping, tripping and stumbling without subsequent striking against object, initial encounter; M21.372 Foot drop, left foot; Z91.81 History of falling; Z86.73 Personal history of transient ischemic attack (TIA), and cerebral infarction without residual deficits; Z79.84 Long term (current) use of oral hypoglycemic drugs; Z79.02 Long term (current) use of antithrombotics/antiplatelets; Z79.899 Other long term (current) drug therapy; Z95.5 Presence of coronary angioplasty implant and graft; Y93.01 Activity, walking, marching and hiking; Y92.89 Other specified places as the place of occurrence of the external cause